=== PATIENT | female | born 1960 | race Caucasian/White ===

== ENCOUNTER 2017-05-04 08:03 | Observation (INO) | payer SELFPAY ==
[~2017-05-04] VITALS: Ht 162.6 cm; Wt 80.0 kg
[2017-05-04] VITALS (7 sets, daily range): BP systolic 108–166; BP diastolic 7–102; PULSE 79–98; RESP 18; TEMP 97.9–98.5; O2SAT 87–97
[~2017-05-04 08:03] MED LIST: ASPI325T PO; HYDR-3533 PO; PLAV75TA29 PO; ZOCO5TAB PO
[2017-05-04] MEDS ORDERED: MORPHINE SULFATE 4 MG/ML INJ IV PUSH ONE ×2 (08:15→09:30)
[2017-05-04] MEDS ORDERED: SODIUM CHLORIDE 0.9% FLUSH 10 ML FLUSH IVF PRN (08:15)
[2017-05-04 08:27] LABS: AUTOMATED NEUTROPHIL # 3.2 TH/MM3 (1.8-7.7); BASOPHIL # 0.1 TH/MM3 (0-0.2); BASOPHIL % 1.2 % (0.0-2.0); EOSINOPHIL # 0.1 TH/MM3 (0-0.4); EOSINOPHIL % 2.3 % (0.0-4.0); HEMATOCRIT 43.6 % (35.0-46.0); HEMO FLAGS DIFF FINAL; LYMPH % 13.1 % (9.0-44.0); LYMPHOCYTE # 0.6 TH/MM3 (1.0-4.8); MEAN CELL VOLUME 98.8 FL (80.0-100.0); MEAN CORPUSCULAR HEMOGLOBIN 33.6 PG (27.0-34.0); MONO % 16.7 % (0.0-8.0); NEUT % 66.7 % (16.0-70.0); PLATELET COUNT 203 TH/MM3 (150-450); RED BLOOD COUNT 4.41 MIL/MM3 (4.00-5.30); RED CELL DISTRIBUTION WIDTH 13.7 % (11.6-17.2); WHITE BLOOD COUNT 4.8 TH/MM3 (4.0-11.0)
[2017-05-04 08:35] LABS: APTT (PATIENT) 22.9 SEC (24.3-30.1); PROTHROMBIN TIME - PATIENT 10.7 SEC (9.8-11.6)
[2017-05-04 08:40] LABS: ANION GAP 7 MEQ/L (5-15); AST (GOT) 22 U/L (15-37); BICARBONATE 30.1 MEQ/L (21.0-32.0); BLOOD UREA NITROGEN 6 MG/DL (7-18); CHLORIDE 105 MEQ/L (98-107); GLOMERULAR FILTRATION RATE 78 ML/MIN (>89); MAGNESIUM 1.8 MG/DL (1.5-2.5); POTASSIUM 3.3 MEQ/L (3.5-5.1); SODIUM (NA) 142 MEQ/L (136-145)
[2017-05-04 08:44] LABS: ALKALINE PHOSPHATASE 85 U/L (45-117); ALT (GPT) 23 U/L (10-53); CREATINE KINASE 43 U/L (26-192); TOTAL BILIRUBIN ADULT 0.2 MG/DL (0.2-1.0)
--- NOTE | 2017-05-04 09:16 | RADRPT ---
EXAM DATE/TIME: 05/04/2017 08:29 [facility] COMPARISON: No previous studies available for comparison. INDICATIONS : Chest pain. MEDICAL HISTORY : None. SURGICAL HISTORY : None. ENCOUNTER: Initial ACUITY: 1 day PAIN SCORE: 10/10 LOCATION: Bilateral chest FINDINGS: Single AP view of the chest. The lungs are clear. Cardiomediastinal silhouette within normal limits. No evidence of pleural effusion or pneumothorax. CONCLUSION: No acute cardiopulmonary disease identified. Brien Santiago MD on May 04, 2017 at 9:13 Board Certified Radiologist. This report was verified electronically.
--- NOTE | 2017-05-04 09:21 | PD ---
HPI Chief Complaint: Chest Pain Time Seen by Provider: 08:09 Travel History International Travel<30 days: No Contact w/Intl Traveler<30days: No Traveled to known affect area: No History of Present Illness HPI Patient is a 57 year old female who comes in complaining of chest pains. She says she is getting severe pains in the middle of her chest which have been coming and going since yesterday. She says she has been working a lot outside and she believes she has been dehydrated. She reports vomiting yesterday. She denies SOB. She is a smoker and has history of PVD. PFSH Past Medical History Bipolar Disorder: Yes Anxiety: Yes Depression: Yes ?: Not : 3 Para: 1 Ectopic : Yes Past Surgical History Tonsillectomy: Yes Other Surgery: Yes (ESOPHAGEAL DILATION) Social History Alcohol Use: Yes (LIQUOR DAILY LAST DRINK 2 DAYS AGO ) Tobacco Use: Yes (1/2 PACK A DAY ) Substance Use: No Allergies-Medications (Allergen,Severity, Reaction): Coded Allergies: No Known Allergies (Unverified , 05/04/17) Reported Meds & Prescriptions Reported Meds & Active Scripts Active Aspirin 325 Mg Tab 325 Mg PO DAILY Review of Systems Except as stated in HPI: all other systems reviewed are Neg General / Constitutional: No: Fever, Chills HENT: No: Headaches, Lightheadedness Cardiovascular: Positive: Chest Pain or Discomfort Respiratory: No: Cough, Shortness of Breath Gastrointestinal: Positive: Nausea, Vomiting, No: Abdominal Pain Musculoskeletal: Positive: Pain, No: Edema Skin: No Rash, No Change in Pigmentation Neurologic: No: Weakness, Dizziness Physical Exam Narrative GENERAL: Awake and alert, in no acute distress. SKIN: Focused skin assessment warm/dry. HEAD: Atraumatic. Normocephalic. EYES: Pupils equal and round. No scleral icterus. ENT: Mucous membranes pink and moist. NECK: Trachea midline. No JVD. CARDIOVASCULAR: Regular rate and rhythm. No murmur appreciated. RESPIRATORY: No accessory muscle use. Clear to auscultation. Breath sounds equal bilaterally. GASTROINTESTINAL: Abdomen soft, non-tender, nondistended. MUSCULOSKELETAL: No obvious deformities. No clubbing. No cyanosis. No edema. NEUROLOGICAL: Awake and alert. No obvious cranial nerve deficits. Motor grossly within normal limits. Normal speech. PSYCHIATRIC: Appropriate mood and affect; insight and judgment normal. Data Data Last Documented VS Vital Signs Date Time Temp Pulse Resp B/P Pulse Ox O2 Delivery O2 Flow Rate FiO2 05/04/17 08:21 92 18 97 Room Air 05/04/17 08:15 132/102 130/82 05/04/17 08:08 98.5 Orders Electrocardiogram (05/04/17 ) Ckmb (Isoenzyme) Profile (05/04/17 08:09) Complete Blood Count With Diff (05/04/17 08:09) Comprehensive Metabolic Panel (05/04/17 08:09) Magnesium (Mg) (05/04/17 08:09) Prothrombin Time / Inr (Pt) (05/04/17 08:09) Act Partial Throm Time (Ptt) (05/04/17 08:09) Troponin I (05/04/17 08:09) Chest, Single Ap (05/04/17 08:09) Ecg Monitoring (05/04/17 08:09) Bilateral Bp Monitoring (05/04/17 08:09) Iv Access Insert/Monitor (05/04/17 08:09) Oximetry (05/04/17 08:09) Morphine Inj (Morphine Inj) (05/04/17 08:15) Sodium Chloride 0.9% Flush (Ns Flush) (05/04/17 08:15) Labs Laboratory Tests Test 05/04/17 08:18 White Blood Count 4.8 TH/MM3 Red Blood Count 4.41 MIL/MM3 Hemoglobin 14.8 GM/DL Hematocrit 43.6 % Mean Corpuscular Volume 98.8 FL Mean Corpuscular Hemoglobin 33.6 PG Mean Corpuscular Hemoglobin 34.0 % Concent Red Cell Distribution Width 13.7 % Platelet Count 203 TH/MM3 Mean Platelet Volume 7.2 FL Neutrophils (%) (Auto) 66.7 % Lymphocytes (%) (Auto) 13.1 % Monocytes (%) (Auto) 16.7 % Eosinophils (%) (Auto) 2.3 % Basophils (%) (Auto) 1.2 % Neutrophils # (Auto) 3.2 TH/MM3 Lymphocytes # (Auto) 0.6 TH/MM3 Monocytes # (Auto) 0.8 TH/MM3 Eosinophils # (Auto) 0.1 TH/MM3 Basophils # (Auto) 0.1 TH/MM3 CBC Comment DIFF FINAL Differential Comment Prothrombin Time 10.7 SEC Prothromb Time International 1.0 RATIO Ratio Activated Partial 22.9 SEC Thromboplast Time Sodium Level 142 MEQ/L Potassium Level 3.3 MEQ/L Chloride Level 105 MEQ/L Carbon Dioxide Level 30.1 MEQ/L Anion Gap 7 MEQ/L Blood Urea Nitrogen 6 MG/DL Creatinine 0.77 MG/DL Estimat Glomerular Filtration 78 ML/MIN Rate Random Glucose 95 MG/DL Calcium Level 8.3 MG/DL Magnesium Level 1.8 MG/DL Total Bilirubin 0.2 MG/DL Aspartate Amino Transf 22 U/L (AST/SGOT) Alanine Aminotransferase 23 U/L (ALT/SGPT) Alkaline Phosphatase 85 U/L Total Creatine Kinase 43 U/L Troponin I LESS THAN 0.02 NG/ML Total Protein 6.5 GM/DL Albumin 3.0 GM/DL [facility] Medical Decision Making Medical Screen Exam Complete: Yes Emergency Medical Condition: Yes Medical Record Reviewed: Yes Interpretation(s) ECG shows normal sinus rhythm at 91 T-wave inversions in 2, [address] elevation. Differential Diagnosis ACS versus NSTEMI versus STEMI versus pneumonia versus bronchitis Narrative Course Patient is a 57-year-old female who comes in complaining of chest pain. Exam shows no acute abnormalities. ECG shows no signs of STEMI. Chest x-ray shows no acute abnormalities. IV established, labs sent. Patient connected to cardiac rehab nurse. She took a full aspirin at home. Given morphine for pain. First troponin is negative. Patient will be placed in chest pain center for further management. Diagnosis Primary Impression: Chest pain Qualified Code: R07.9 - Chest pain, unspecified type Admitting Information Admitting Physician Requests: Observation Condition: Stable Melissa Palacio MD May 04, 2017 09:21
[2017-05-04] MEDS ORDERED: ACETAMINOPHEN 500 MG CPLT PO PRN (10:00)
[2017-05-04] MEDS ORDERED: ONDANSETRON HCL 4 MG/2 ML VIAL IV PRN (10:00)
[2017-05-04] MEDS ORDERED: NITROGLYCERIN 0.4 MG SL 25 TABS/BTL SL PRN (10:00)
--- NOTE | 2017-05-04 10:24 | HHI.HP ---
HPI Primary Care Physician No Primary Care Physician Chief Complaint Chest pain History of Present Illness 57-year-old female with known PVD and current smoker presents to the emergency room for further evaluation of substernal chest pain. Onset Saturday afternoon. Points to Location Substernal. Radiates under bilateral breasts. Discomfort described as pressure. Chest discomfort has been intermittent duration generally last no more than 10 seconds. No particular movements or positions make pain better or worse. No associated symptoms of shortness of breath, diaphoresis, or vomiting. Endorses she has been "belching a lot." Reports intermittent nausea 2 days. Endorses non-bloody emesis 1 and X1 episode nonbloody loose stool. Has tried [id number] Zantac without relief. No known precipitating or relieving factors. Denies similar pain in the past. She is tearful throughout interview, stating she is currently " highly anxious." Patient was seen and evaluated [facility] November 2016. At that time, she was diagnosed with peripheral vascular disease and told to follow-up with a vascular surgeon. She was prescribed aspirin 325, Plavix 75 mg, and simvastatin. Endorses she was compliant with medication until running out after 30 day prescription. States she was unable to follow-up with a PCP or vascular surgeon as she does not have insurance or the financial means to pay for appointments. Review of Systems General: No fatigue,weakness, fever, chills, or recent illness. Decreased appetite since Saturday. Has not been sleeping well since Saturday. HEENT: No WANG, no dysphasia CV: As stated above. Experienced chest pain episode during interview at which she clenched her fists over epigastric area, episode lasted approximately 15 seconds. Endorses intermittent leg pain only after walking and her being on her feet 56 hours. RESP: No SOB, cough, wheeze, or recent URI. GI: Intermittent nausea, currently denies nausea. Endorses 1 vomiting episode yesterday accompanied with one loose stool, both nonbloody. No constipation, pain, distention, or blood in the stool. Frequent belching since Saturday with a poor appetite. History of esophageal dilatation, denies dysphagia, ingestion, burning, or sour taste in mouth. : No dysuria, urgency, frequency EXT: No lower leg edema, no paraesthesias MS: No discomfort or change in ROM NEURO: No change in memory, dizziness, difficulty with balance, LOC, motor/ sensory deficits PSYCH: Endorses anxiety and depression, states she was seen at [facility] January 2016. Denies suicidal ideation. Reports situational stress regarding concern she may lose her job and she does not have a support system locally, family all lives in [place]. SKIN: No rashes, no concerning lesions Past Family Social History Allergies: Coded Allergies: No Known Allergies (Unverified , 05/04/17) Past Medical History PVD, anxiety, depression, bipolar Past Surgical History Tonsillectomy, esophageal dilatation Reported Medications Active Aspirin 325 Mg Tab 325 Mg PO DAILY Active Ordered Medications Current Medications Medications (Trade) Dose Ordered Sig/Kenna Route Start Time Stop Time Status Last Admin (NS Flush) 2 ml UNSCH PRN IVF 05/04/17 08:15 05/04/17 09:00 (NS Flush) 2 ml BID IV FLUSH 05/04/17 21:00 (Tylenol) 500 mg Q4H PRN PO 05/04/17 10:00 (Zofran Inj) 4 mg Q6H PRN IV 05/04/17 10:00 (Nitrostat Sl) 0.4 mg Q5M PRN SL 05/04/17 10:00 (Aspirin) 325 mg DAILY PO 05/05/17 09:00 Family History Positive for early onset cardiovascular disease father open heart surgery age 44. Social History No known hypertension, diabetes, or hyperlipidemia. Half pack daily smoker. Drinks 23 alcohol drinks daily. Denies any illegal drug use. 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 Past cardiac testing None Physical Exam Vital Signs Vital Signs Date Time Temp Pulse Resp B/P Pulse Ox O2 Delivery O2 Flow Rate FiO2 05/04/17 09:47 97 21 05/04/17 09:05 16 05/04/17 08:21 92 18 97 Room Air 05/04/17 08:15 92 132/102 130/82 05/04/17 08:15 18 97 Room Air 05/04/17 08:08 98.5 98 18 166/69 97 Physical Exam GENERAL: Alert WN, WD, NAD, tearful, anxious, female who appears older than stated age HEAD: NC, AT EYES: Sclera clear ENT: Mucous membranes pink and moist NECK: Supple, no masses, trachea midline CV: RRR, without murmur, rub, gallop, no JVD, S1-S2 no S3-S4. RESP: Diminished lung sounds throughout bilateral, no crackles, wheeze, rhonchi , symmetrical chest rise, nonlabored, able to speak in full sentences ABD: Soft, NT, ND, no masses, positive bowel tones BACK: No CVAT, no scoliosis EXT: Pulses +24, no dependent edema MS: Normal tone 4 extremities, nontender, no obvious deformities, full range of motion NEURO: CN II through CN XII grossly intact, motor strength 5/5, gait WNL PSYCH: A+O 3, pleasant affect, appropriate speech, appropriate mood and affect , insight and judgment SKIN: Normal turgor, normal texture, no lesions, no rashes Laboratory Laboratory Tests Test 05/04/17 08:18 White Blood Count 4.8 Red Blood Count 4.41 Hemoglobin 14.8 Hematocrit 43.6 Mean Corpuscular Volume 98.8 Mean Corpuscular Hemoglobin 33.6 Mean Corpuscular Hemoglobin 34.0 Concent Red Cell Distribution Width 13.7 Platelet Count 203 Mean Platelet Volume 7.2 Neutrophils (%) (Auto) 66.7 Lymphocytes (%) (Auto) 13.1 Monocytes (%) (Auto) 16.7 Eosinophils (%) (Auto) 2.3 Basophils (%) (Auto) 1.2 Neutrophils # (Auto) 3.2 Lymphocytes # (Auto) 0.6 Monocytes # (Auto) 0.8 Eosinophils # (Auto) 0.1 Basophils # (Auto) 0.1 CBC Comment DIFF FINAL Differential Comment Prothrombin Time 10.7 Prothromb Time International 1.0 Ratio Activated Partial 22.9 Thromboplast Time Sodium Level 142 Potassium Level 3.3 Chloride Level 105 Carbon Dioxide Level 30.1 Anion Gap 7 Blood Urea Nitrogen 6 Creatinine 0.77 Estimat Glomerular Filtration 78 Rate Random Glucose 95 Calcium Level 8.3 Magnesium Level 1.8 Total Bilirubin 0.2 Aspartate Amino Transf 22 (AST/SGOT) Alanine Aminotransferase 23 (ALT/SGPT) Alkaline Phosphatase 85 Total Creatine Kinase 43 Troponin I LESS THAN 0.02 Total Protein 6.5 Albumin 3.0 Result Diagram: 05/04/1718 05/04/1718 Imaging Last Impressions Chest X-Ray 05/04/17 0809 Signed Impressions: Service Date/Time: Thursday, May 04, 2017 08:29 - CONCLUSION: No acute cardiopulmonary disease identified. Brien Santiago MD Course EKG First EKG normal sinus rhythm, T-wave inversions inferiorly, no ST segment changes Assessment and Plan Assessment and Plan #1 Chest painadmitted to chest pain center. Serial EKG and cardiac enzymes. Seen and evaluated by Dr. Brandon Posada. Will order chemical stress test if second troponin and EKG unchanged. #2 AnxietyAtivan 0.5 mg by mouth 1 dose now. Encouraged patient to establish again with Jose Bartlett and restart her psychiatric medications. #3 PVDcontinue aspirin. Discussed importance compliance of medication, tobacco sensation, and keeping follow-up appointments. Spoke with case management to determine if she is a candidate for any medical assistance. Would prefer to restart her Plavix and simvastatin as previously ordered knowing she has follow-up with PCP. #4 Tobacco use-counseled on risk factors regarding tobacco use. Encouraged patient to quit smoking. #5 GERD-GI cocktail #6 Musculoskeletal pain-Toradol 30mg x1 IV Estefania Abbasi May 04, 2017 10:24
[2017-05-04] MEDS ORDERED: LIDOCAINE VISCOUS 2% SOLN 15 ML UDC SWISH-SWAL ONE (11:00)
[2017-05-04] MEDS ORDERED: ALUMINUM/MAGNESIUM/SIMETH 30 ML CUP PO ONE (11:00)
[2017-05-04] MEDS ORDERED: LORazepam 0.5 MG TAB PO ONE (11:00)
[2017-05-04 12:15] LABS: CREATINE KINASE 39 U/L (26-192)
[2017-05-04] MEDS ORDERED: KETOROLAC TROMETHAMINE 30 MG/ML (IVP) VIAL IV PUSH ONE (13:00)
--- NOTE | 2017-05-04 14:49 | EKG ---
Date Performed: 05/04/2017 Time Performed: 12:23:22 PTAGE: 57 years EKG: Sinus rhythm NONSPECIFIC ST & T-WAVE ABNORMALITY BORDERLINE ECG PREVIOUS TRACING : 05/04/2017 08.10 Since previous tracing, no significant change noted DOCTOR: Brandon Posada Interpretating Date/Time 05/04/2017 14:47:49
--- NOTE | 2017-05-04 14:51 | EKG ---
Date Performed: 05/04/2017 Time Performed: 08:10:20 PTAGE: 57 years EKG: Sinus rhythm NONSPECIFIC ST & T-WAVE ABNORMALITY BORDERLINE ECG NO PREVIOUS TRACING DOCTOR: Brandon Posada Interpretating Date/Time 05/04/2017 14:49:18
[2017-05-04] MEDS ORDERED: REGADENOSON INJ 0.4 MG/5 ML SYR ONE (15:14)
--- NOTE | 2017-05-04 17:29 | RADRPT ---
EXAM DATE/TIME: 05/04/2017 15:01 [facility] COMPARISON: No previous studies available for comparison. INDICATIONS : Mid chest pain with nausea for four days. Angina. DOSE: 26.7 mCi Tc99m Myoview at stress. 8.7 mCi Tc99m Myoview at rest. 0.4 mg Lexiscan STRESS SYMPTOMS: None. EJECTION FRACTION: 62% MEDICAL HISTORY : Peripheral vascular disease. SURGICAL HISTORY : Tonsillectomy. ENCOUNTER: Initial ACUITY: 4 - 6 days PAIN SCALE: 7/10 LOCATION: Midsternal chest TECHNIQUE: The patient underwent pharmacologic stress with infusion of prescribed dose. Continuous ECG tracing was monitored during stress. Gated SPECT imaging was performed after stress and conventional SPECT i maging was performed at rest. The examination was performed on a SPECT/CT scanner, both attenuation and non-corrected datasets were reviewed. FINDINGS: DISTRIBUTION: The maximum perfused segment at stress is in the anterior wall. PERFUSION STUDY: The pattern of perfusion at stress is within normal limits, with regional variations perfusion within 30%. The pattern of perfusion at stress and rest is unchanged. The diaphragmatic attenuation effec t lateral mid ventricular segments.. GATED STUDY: There is intact wall motion and thickening without hypokinetic or dyskinetic segments. CONCLUSION: 1. No evidence of stress-induced ischemia. 2. Normal wall motion with 62% ejection fraction. RISK CATEGORY: Low (<1% Annual Mortality Rate) Rashaad Grimm MD on May 04, 2017 at 17:25 Board Certified Radiologist. This report was verified electronically.
[2017-05-04] MEDS ORDERED: SIMV5TAB3 PO (17:32)
[2017-05-04] MEDS ORDERED: PLAV75TA29 PO (17:32)
--- NOTE | 2017-05-04 17:33 | HHI.DCPOC ---
Discharge Care Plan Diagnosis: (1) Chest wall pain (2) Situational stress (3) Anxiety (4) Peripheral arterial occlusive disease Goals to Promote Your Health * To prevent worsening of your condition and complications * To maintain your health at the optimal level Directions to Meet Your Goals Take your medications as prescribed Follow your dietary instruction Follow activity as directed Keep your appointments as scheduled Take your immunizations and boosters as scheduled If your symptoms worsen call your PCP, if no PCP go to Urgent Care Center or Emergency Room Smoking is Dangerous to Your Health. Avoid second hand smoke Call the 24-hour hour crisis hotline for domestic abuse at Estefania Abbasi May 04, 2017 17:32
[2017-05-04] MEDS ORDERED: LORazepam 0.5 MG TAB PO SCH (18:00)
[2017-05-04] MEDS ORDERED: SODIUM CHLORIDE 0.9% FLUSH 10 ML FLUSH IV FLUSH SCH (21:00)
[2017-05-05] MEDS ORDERED: ASPIRIN 325 MG TAB PO SCH (09:00)
--- NOTE | 2017-05-05 15:02 | TR ---
Date Performed: 05/04/2017 Time Performed: 15:40:57 DOCTOR: Brandon Posada DRUG LIST: CLINICAL HISTORY: ANGINA REASON FOR TEST: Angina REASON FOR ENDING: OBSERVATION: CONCLUSION: Lexiscan stress test was performed under standard four minute protocol. Radionuclid e was injected one minute prior to ending the test. No electrocardiographic abormalities were present to suggest ischemia. Nuclear imaging and interpretation are pending. COMMENTS:
[2017-05-16] MEDS ORDERED: [UNRECOGNIZED DRUG - CODE] PO (10:46)
[2017-05-16] MEDS ORDERED: IBUP200C PO (10:46)
[2017-05-16] MEDS ORDERED: PLAV75TA29 PO (11:12)
== END 2017-05-04 18:34 | disposition home or self-care (01) ==
LOC: NEPC 08:03 → NEDA 09:22 → NEPGCP 11:03
DX: R07.89 Other chest pain (principal); I20.9 Angina pectoris, unspecified; F41.9 Anxiety disorder, unspecified; I73.9 Peripheral vascular disease, unspecified; K21.9 Gastro-esophageal reflux disease without esophagitis; F17.210 Nicotine dependence, cigarettes, uncomplicated; M79.1 Myalgia; I77.9 Disorder of arteries and arterioles, unspecified
CPT/HCPCS: 71010; 78452; 80053; 82550; 83735; 84484; 85025; 85610; 85730; 93005; 93017; 96374; 96375; 99285; A9502; G0378; J1885; J2270; J2785

== ENCOUNTER 2017-06-03 08:24 | Emergency (ER) | payer SELFPAY ==
[~2017-06-03] VITALS: Ht 162.6 cm; Wt 84.0 kg
[~2017-06-03 08:24] MED LIST changes: -HYDR-3533 PO; +IBUP200C PO; +SIMV5TAB3 PO; -ZOCO5TAB PO; +[UNRECOGNIZED DRUG - CODE] PO
--- NOTE | 2017-06-03 08:29 | PD ---
HPI Chief Complaint: Yuan act Time Seen by Provider: 08:29 Travel History International Travel<30 days: No Contact w/Intl Traveler<30days: No Traveled to known affect area: No History of Present Illness HPI 57-year-old female came to the emergency room brought by EMS as a Yuan act. Patient says that she had been binge drinking and was having thoughts of killing herself. Here she has been very tearful and says that she just wants to because she cannot take her left leg pain anymore. Upon asking patient says she's been having this since last November. Every time she walks she is in excruciating pain. She was referred to a vascular surgeon that she has an appointment with on the 11 of this month. She was here for this leg pain when she had test done and was told that she needs to see vascular surgeon. She is a smoker and continues to smoke still. Currently she is not in any pain. Patient says she usually drinks 2 drinks every day except for the past couple days when she has been binge drinking. [facility] Past Medical History Narrative Medical List of her past medical, surgical, social and family history was reviewed from the nursing note. Bipolar Disorder: Yes Anxiety: Yes Depression: Yes Heart Rhythm Problems: No Cardiac Catheterization: No Cardiovascular Problems: No High Cholesterol: No Congestive Heart Failure: No Diabetes: No : 3 Para: 1 Ectopic : Yes Past Surgical History Coronary Artery Bypass Graft: No Tonsillectomy: Yes Other Surgery: Yes (ESOPHAGEAL DILATION) Social History Alcohol Use: Yes (LIQUOR DAILY LAST DRINK 2 DAYS AGO ) Tobacco Use: Yes (1/2 PACK A DAY ) Substance Use: No Allergies-Medications (Allergen,Severity, Reaction): Coded Allergies: No Known Allergies (Unverified , 06/03/17) Comments No known drug allergies. Reported Meds & Prescriptions Reported Meds & Active Scripts Active Simvastatin 5 Mg Tab 5 Mg PO DAILY Aspirin 325 Mg Tab 325 Mg PO DAILY Reported Lorazepam 1 Mg Tab 1 Mg PO DAILY PRN Lovastatin 10 Mg Tab 10 Mg PO DAILY [employer] (Ranitidine HCl) 75 Mg Tab 84 Mg PO DAILY Ibuprofen 200 Mg Cap 200 Mg PO Q4H PRN Narrative Medication List of her home medications reviewed from the nursing note. Review of Systems Except as stated in HPI: all other systems reviewed are Neg Physical Exam Narrative GENERAL: Awake, alert, tearful SKIN: Focused skin assessment warm/dry. Old bruises on her legs HEAD: Atraumatic. Normocephalic. EYES: Pupils equal and round. No scleral icterus. No injection or drainage. ENT: No nasal bleeding or discharge. Mucous membranes pink and moist. NECK: Trachea midline. No JVD. CARDIOVASCULAR: Regular rate and rhythm. No murmur appreciated. RESPIRATORY: No accessory muscle use. Clear to auscultation. Breath sounds equal bilaterally. GASTROINTESTINAL: Abdomen soft, non-tender, nondistended. Hepatic and splenic margins not palpable. MUSCULOSKELETAL: No obvious deformities. No clubbing. No cyanosis. No edema. Bilateral dopplerable DP is present NEUROLOGICAL: Awake and alert. No obvious cranial nerve deficits. Motor grossly within normal limits. Normal speech. PSYCHIATRIC: Appropriate mood and affect; insight and judgment normal. Data Data Last Documented VS Vital Signs Date Time Temp Pulse Resp B/P Pulse Ox O2 Delivery O2 Flow Rate FiO2 06/03/17 12:44 97.2 88 18 160/87 95 Room Air Orders Complete Blood Count With Diff (06/03/17 08:36) Comprehensive Metabolic Panel (06/03/17 08:36) Psych Screen (06/03/17 08:36) Drug Screen, Random Urine (06/03/17 08:36) Alcohol (Ethanol) (06/03/17 08:36) Electrocardiogram (06/03/17 ) Potassium Chloride Eff (K-Lyte Cl Eff) (06/03/17 09:45) Pantoprazole Inj (Protonix Inj) (06/03/17 10:00) Alprazolam (Xanax) (06/03/17 11:30) Labs Laboratory Tests Test 06/03/17 06/03/17 09:00 09:50 White Blood Count 13.0 TH/MM3 Red Blood Count 4.91 MIL/MM3 Hemoglobin 16.0 GM/DL Hematocrit 47.8 % Mean Corpuscular Volume 97.4 FL Mean Corpuscular Hemoglobin 32.5 PG Mean Corpuscular Hemoglobin 33.4 % Concent Red Cell Distribution Width 14.5 % Platelet Count 307 TH/MM3 Mean Platelet Volume 6.9 FL Neutrophils (%) (Auto) 87.4 % Lymphocytes (%) (Auto) 6.6 % Monocytes (%) (Auto) 5.2 % Eosinophils (%) (Auto) 0.2 % Basophils (%) (Auto) 0.6 % Neutrophils # (Auto) 11.3 TH/MM3 Lymphocytes # (Auto) 0.9 TH/MM3 Monocytes # (Auto) 0.7 TH/MM3 Eosinophils # (Auto) 0.0 TH/MM3 Basophils # (Auto) 0.1 TH/MM3 CBC Comment AUTO DIFF Differential Comment AUTO DIFF CONFIRMED Sodium Level 138 MEQ/L Potassium Level 3.2 MEQ/L Chloride Level 102 MEQ/L Carbon Dioxide Level 26.0 MEQ/L Anion Gap 10 MEQ/L Blood Urea Nitrogen 11 MG/DL Creatinine 0.80 MG/DL Estimat Glomerular Filtration 74 ML/MIN Rate Random Glucose 107 MG/DL Calcium Level 8.5 MG/DL Total Bilirubin 0.6 MG/DL Aspartate Amino Transf 41 U/L (AST/SGOT) Alanine Aminotransferase 24 U/L (ALT/SGPT) Alkaline Phosphatase 98 U/L Total Protein 7.2 GM/DL Albumin 3.4 GM/DL Ethyl Alcohol Level LESS THAN 3 MG/DL Urine Opiates Screen NEG Urine Barbiturates Screen NEG Urine Amphetamines Screen NEG Urine Benzodiazepines Screen NEG Urine Cocaine Screen NEG Urine Cannabinoids Screen NEG MDM Medical Decision Making Medical Screen Exam Complete: Yes Emergency Medical Condition: Yes Medical Record Reviewed: Yes Interpretation(s) Twelve-lead EKG was reviewed by me. Normal sinus rhythm, normal axis, nonspecific ST-T wave changes. Heart rate of 88 bpm. Differential Diagnosis Alcohol abuse, polysubstance abuse, major depression, suicidal ideation, leg claudication syndrome Narrative Course 9:53 AM blood test results of back and within acceptable limit except for her CBC which is elevated. Her alcohol level interestingly is almost 0. Awaiting for urine drug screen but I have medically cleared her. I looked at her CT area of the aorta with runoff which showed 60-80% stenosis of her left popliteal. However because she has dopplerable pulses and pain free currently and has an appointment with vascular surgeon on okay to not pursue that at this present time. She obviously does need to quit smoking as well. She will need a psych screen. Procedures EKG Prior to Arrival: No Diagnosis Primary Impression: Peripheral arterial occlusive disease Additional Impressions: Needs smoking cessation education Major depression Qualified Code: F33.1 - Moderate episode of recurrent major depressive disorder Suicidal thoughts Timothy Marin MD Jun 03, 2017 08:29
[2017-06-03 08:32] VITALS: BP 167/93; PULSE 108; RESP 19; TEMP 97.9; O2SAT 97
[2017-06-03 08:38] VITALS: BP 167/93; PULSE 105; RESP 18; TEMP 97.9; O2SAT 97
[2017-06-03] MEDS ORDERED: LORA1TAB12 PO (08:57)
[2017-06-03] MEDS ORDERED: LOVA10TA PO (08:57)
[2017-06-03 09:14] LABS: AUTOMATED NEUTROPHIL # 11.3 TH/MM3 (1.8-7.7); BASOPHIL # 0.1 TH/MM3 (0-0.2); BASOPHIL % 0.6 % (0.0-2.0); EOSINOPHIL % 0.2 % (0.0-4.0); HEMATOCRIT 47.8 % (35.0-46.0); LYMPH % 6.6 % (9.0-44.0); LYMPHOCYTE # 0.9 TH/MM3 (1.0-4.8); MEAN CELL VOLUME 97.4 FL (80.0-100.0); MEAN CORPUSCULAR HEMOGLOBIN 32.5 PG (27.0-34.0); MEAN CORPUSCULAR HGB CONC 33.4 % (32.0-36.0); MONO % 5.2 % (0.0-8.0); NEUT % 87.4 % (16.0-70.0); PLATELET COUNT 307 TH/MM3 (150-450); RED BLOOD COUNT 4.91 MIL/MM3 (4.00-5.30); RED CELL DISTRIBUTION WIDTH 14.5 % (11.6-17.2)
[2017-06-03 09:17] LABS: HEMO FLAGS AUTO DIFF
[2017-06-03 09:29] LABS: ALT (GPT) 24 U/L (10-53)
[2017-06-03 09:31] LABS: ALKALINE PHOSPHATASE 98 U/L (45-117); TOTAL BILIRUBIN ADULT 0.6 MG/DL (0.2-1.0)
[2017-06-03 09:35] LABS: ANION GAP 10 MEQ/L (5-15); AST (GOT) 41 U/L (15-37); BLOOD UREA NITROGEN 11 MG/DL (7-18); CHLORIDE 102 MEQ/L (98-107); GLOMERULAR FILTRATION RATE 74 ML/MIN (>89); POTASSIUM 3.2 MEQ/L (3.5-5.1); SODIUM (NA) 138 MEQ/L (136-145)
[2017-06-03 09:41] LABS: SCAN/DIFF AUTO DIFF CONFIRMED
[2017-06-03] MEDS ORDERED: POTASSIUM CHLORIDE 25 MEQ EFFERVESCENT TAB PO ONE (09:45)
[2017-06-03 09:55] VITALS: BP 150/84; PULSE 94; RESP 20; O2SAT 96
[2017-06-03] MEDS ORDERED: PANTOPRAZOLE SODIUM 40 MG VIAL IV PUSH ONE (10:00)
[2017-06-03 10:22] LABS: BARBITURATES, URINE NEG (NEG)
[2017-06-03 10:26] LABS: AMPHETAMINE, URINE NEG (NEG); COCAINE, URINE NEG (NEG)
[2017-06-03] MEDS ORDERED: ALPRAZolam 0.5 MG TAB PO ONE (11:30)
[2017-06-03 12:12] VITALS: BP 152/90
[2017-06-03 12:44] VITALS: BP 160/87; TEMP 97.2; O2SAT 95
--- NOTE | 2017-06-03 15:02 | EKG ---
Date Performed: 06/03/2017 Time Performed: 08:53:15 PTAGE: 57 years EKG: Sinus rhythm NONSPECIFIC ST & T-WAVE ABNORMALITY Since previous tracing, no significant change noted BORDERLINE E CG PREVIOUS TRACING : 06/03/2017 08.51 DOCTOR: Prieto Cuenca Interpretating Date/Time 06/03/2017 15:01:40
--- NOTE | 2017-06-05 12:31 | PD.PSY.CON ---
Provisional Diagnosis Admission Date [place] I. Alcohol induced mood disorder, alcohol use disorder, depression [place] II. Deferred [place] III. No significant medical history History of Present Illness Service Psychiatry Consult Requested By Primary Care Physician No Primary Care Physician HPI The patient is 57-year-old woman, domiciled, employed, with psychiatric history of depression, no psychiatric hospitalizations, no suicidal attempts, she is on Prozac and Ativan prescribed by PCP, alcohol use disorder, significant medical history who presented to the emergency room brought by EMS as a Yuan act. Patient says that she had been binge drinking and was having thoughts of killing herself. Here she has been very tearful and says that she just wants to because she cannot take her left leg pain anymore. Upon asking patient says she's been having this since last November. Every time she walks she is in excruciating pain. She was referred to a vascular surgeon that she has an appointment with on the of this month. She was here for this leg pain when she had test done and was told that she needs to see vascular surgeon. She is a smoker and continues to smoke still. Currently she is not in any pain. Patient says she usually drinks 2 drinks every day except for the past couple days when she has been binge drinking. On psychiatric evaluation today patient is clinically sober, calm, cooperative, in a good spirit, patient reports good mood, she denies depressive symptoms, she is future oriented, is states that yesterday was just drunk. She denies suicidal or homicidal ideation , she denies visual and auditory hallucinations, patient is oriented 3, no attention deficit. Patient reports 1 or 2 drinks per day, denies the use of illicit drugs. Review of Systems Constitutional: DENIES: Diaphoretic episodes, Fatigue, Fever, Weight gain, Weight loss, Chills, Dizziness, Change in appetite, Night Sweats Endocrine: DENIES: Abnorml menstrual pattern, Heat/cold intolerance, Polydipsia , Polyuria, Polyphagia Eyes: DENIES: Blurred vision, Diplopia, Eye inflammation, Eye pain, Vision loss , Photosensitivity, Double Vision Ears, nose, mouth, throat: DENIES: Tinnitus, Hearing loss, Vertigo, Nasal discharge, Oral lesions, Throat pain, Hoarseness, Ear Pain, Running Nose, Epistaxis, Sinus Pain, Toothache, Odynophagia Respiratory: DENIES: Apneas, Cough, Snoring, Wheezing, Hemoptysis, Sputum production, Shortness of breath Cardiovascular: DENIES: Chest pain, Palpitations, Syncope, Dyspnea on Exertion , PND, Lower Extremity Edema, Orthopnea, Claudication Gastrointestinal: DENIES: Abdominal pain, Black stools, Bloody stools, Constipation, Diarrhea, Nausea, Vomiting, Difficulty Swallowing, Anorexia Musculoskeletal: DENIES: Joint pain, Muscle aches, Stiffness, Joint Swelling, Back pain, Neck pain Integumentary: DENIES: Abnormal pigmentation, Pruritus, Rash, Nail changes, Breast masses, Breast skin changes, Nipple discharge Immunologic/allergic: DENIES: Eczema, Urticaria Neurologic: DENIES: Abnormal gait, Headache, Localized weakness, Paresthesias, Seizures, Speech Problems, Tremor, Poor Balance Psychiatric: DENIES: Anxiety, Confusion, Mood changes, Depression, Hallucinations, Agitation, Suicidal Ideation, Homicidal Ideation, Delusions Past Family Social History Coded Allergies: No Known Allergies (Unverified , 06/03/17) Active Scripts Clopidogrel (Plavix)75 Mg Tab75 Mg PO DAILY #30 TAB Ref 3 Prov:Melissa Adhikari WINDOW INSTALLER 05/16/17 Simvastatin 5 Mg Tab5 Mg PO DAILY #30 TAB Ref 0 Prov:Estefania Abbasi WINDOW INSTALLER 05/04/17 Aspirin 325 Mg [id number] Mg PO DAILY #30 TAB Ref 0 Prov:Torrey Alba MD 11/29/16 Reported Medications Lorazepam 1 Mg Tab1 Mg PO DAILY PRN (ANXIETY) Ref 0 06/03/17 Lovastatin 10 Mg Tab10 Mg PO DAILY #30 TAB Ref 0 06/03/17 Ranitidine HCl (Eql Acid Aix Architect)75 Mg Tab84 Mg PO DAILY 05/16/17 Ibuprofen 200 Mg [id number] Mg PO Q4H PRN (PAIN SCALE 4 TO 10) Ref 0 05/16/17 Family History She denies family psychiatric history Social History Patient was born and raised in [place], she lives in [place], 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 2) Verbal communication Physical Exam Vital Signs Vital Signs Date Time Temp Pulse Resp B/P Pulse Ox O2 Delivery O2 Flow Rate FiO2 06/03/17 12:44 97.2 88 18 160/87 95 Room Air Lab Results Labs Laboratory Tests Test 06/03/17 09:00 White Blood Count 13.0 TH/MM3 Red Blood Count 4.91 MIL/MM3 Hemoglobin 16.0 GM/DL Hematocrit 47.8 % Mean Corpuscular Volume 97.4 FL Mean Corpuscular Hemoglobin 32.5 PG Mean Corpuscular Hemoglobin 33.4 % Concent Red Cell Distribution Width 14.5 % Platelet Count 307 TH/MM3 Mean Platelet Volume 6.9 FL Neutrophils (%) (Auto) 87.4 % Lymphocytes (%) (Auto) 6.6 % Monocytes (%) (Auto) 5.2 % Eosinophils (%) (Auto) 0.2 % Basophils (%) (Auto) 0.6 % Neutrophils # (Auto) 11.3 TH/MM3 Lymphocytes # (Auto) 0.9 TH/MM3 Monocytes # (Auto) 0.7 TH/MM3 Eosinophils # (Auto) 0.0 TH/MM3 Basophils # (Auto) 0.1 TH/MM3 CBC Comment AUTO DIFF Differential Comment AUTO DIFF CONFIRMED Sodium Level 138 MEQ/L Potassium Level 3.2 MEQ/L Chloride Level 102 MEQ/L Carbon Dioxide Level 26.0 MEQ/L Anion Gap 10 MEQ/L Blood Urea Nitrogen 11 MG/DL Creatinine 0.80 MG/DL Estimat Glomerular Filtration 74 ML/MIN Rate Random Glucose 107 MG/DL Calcium Level 8.5 MG/DL Total Bilirubin 0.6 MG/DL Aspartate Amino Transf 41 U/L (AST/SGOT) Alanine Aminotransferase 24 U/L (ALT/SGPT) Alkaline Phosphatase 98 U/L Total Protein 7.2 GM/DL Albumin 3.4 GM/DL Ethyl Alcohol Level LESS THAN 3 MG/DL Mental Status Examination Appearance woman, age appearing, calm and cooperative Speech: Unremarkable Orientation: x3 Memory: Unremarkable Thought Process: Logical Thought Content: Unremarkable Hallucination Type: None Attention and Concentration: Good Suicidal Ideation: No Previous Suicide Attempts: No Homicidal Ideation: No Previous Homicide Attempts: No Judgment: WNL Affect: Good Mood: Euthymic Motor Activity: Normal gait Assessment & Plan Problem List: (1) Alcohol-induced mood disorder Assessment & Plan: On psychiatric evaluation today the patient does not present any objective or subjective symptomatology of depression, anxiety, jordan or psychosis. Patient denies suicidal or homicidal ideation, she denies visual and auditory hallucinations. Recent suicidal statement to law enforcement was the result of acute alcohol intoxication. Patient is medically sober. She does not meet criteria for psychiatric admission at this moment. Yuan act will be lifted.. ICD Code: F10.94 Assessment & Plan Estimated LOS: Lui Travis MD Jun 05, 2017 12:31
== END 2017-06-03 15:10 | disposition home or self-care (01) ==
LOC: NEPC 08:24 → NEPJ 15:10
DX: I73.9 Peripheral vascular disease, unspecified (principal); R45.851 Suicidal ideations; F33.1 Major depressive disorder, recurrent, moderate; F17.210 Nicotine dependence, cigarettes, uncomplicated; F10.10 Alcohol abuse, uncomplicated
CPT/HCPCS: 80053; 80307; 85025; 93005; 96374; 99284; C9113

== ENCOUNTER 2017-08-17 05:29 | Emergency (ER) | payer SELFPAY ==
[~2017-08-17] VITALS: Ht 162.6 cm; Wt 75.0 kg
[~2017-08-17 05:29] MED LIST changes: +LORA1TAB12 PO; +LOVA10TA PO
[2017-08-17 05:33] VITALS: BP 134/91; PULSE 120; RESP 22; TEMP 98.7; O2SAT 95
[2017-08-17] MEDS ORDERED: SODIUM CHLOR 0.9% 1000 ML INJ 1,000 ML IV SCH (05:46)
--- NOTE | 2017-08-17 05:49 | PD ---
HPI Chief Complaint: GI Complaint Time Seen by Provider: 05:34 Travel History International Travel<30 days: No Contact w/Intl Traveler<30days: No Traveled to known affect area: No History of Present Illness HPI Patient 57-year-old female presents emergency department for evaluation of nausea vomiting first clear but then having some blood streaked. Patient states that she has been an alcoholic in the past but quit recently had a relapse. She states she's been binging pretty hard over the past few days but quit 2 days ago. She states that she is unable tolerate by mouth and has not been taking any medications because of this. She is afraid that if she quits now that she might have a seizure. No fevers no diarrhea no constipation. The patient states she's also been not drinking enough nonalcoholic fluids. Symptoms are moderate, worsened with alcohol intake. Symptoms overall gradually worsening. PFSH Past Medical History Hx Anticoagulant Therapy: Yes (plavix, but states she does not take it anymore. It makes her sick ) Bipolar Disorder: Yes Anxiety: Yes Depression: Yes Heart Rhythm Problems: No Cardiac Catheterization: No Cardiovascular Problems: Yes High Cholesterol: Yes Congestive Heart Failure: No Diabetes: No Gastrointestinal Disorders: Yes GERD: Yes Medical other: Yes (blood clots removed 2 months ago left leg) Respiratory: No Influenza Vaccination: No ?: Not : 3 Para: 1 Ectopic : Yes Past Surgical History Coronary Artery Bypass Graft: No Tonsillectomy: Yes Other Surgery: Yes (ESOPHAGEAL DILATION) Social History Alcohol Use: Yes Tobacco Use: Yes (1/2 PACK A DAY ) Substance Use: Yes (1-2 drinks/day; last used yesterday) Allergies-Medications (Allergen,Severity, Reaction): Coded Allergies: No Known Allergies (Unverified , 08/18/17) Reported Meds & Prescriptions Reported Meds & Active Scripts Active No Active Prescriptions or Reported Medications Review of Systems Except as stated in HPI: all other systems reviewed are Neg Physical Exam Narrative GENERAL: Well-developed well-nourished appears fairly anxious. SKIN: Focused skin assessment warm/dry. HEAD: Atraumatic. Normocephalic. EYES: Pupils equal and round. No scleral icterus. No injection or drainage. ENT: No nasal bleeding or discharge. Mucous membranes pink and moist. NECK: Trachea midline. No JVD. CARDIOVASCULAR: Regular rate and rhythm. No murmur appreciated. RESPIRATORY: No accessory muscle use. Clear to auscultation. Breath sounds equal bilaterally. GASTROINTESTINAL: Abdomen soft, non-tender, nondistended. Hepatic and splenic margins not palpable. No rebound no percussive tenderness. MUSCULOSKELETAL: No obvious deformities. No clubbing. No cyanosis. No edema. NEUROLOGICAL: Awake and alert. No obvious cranial nerve deficits. Motor grossly within normal limits. Normal speech. No tremors. PSYCHIATRIC: Appropriate mood and affect; insight and judgment normal. Data Data Last Documented VS Vital Signs Date Time Temp Pulse Resp B/P (MAP) Pulse Ox O2 Delivery O2 Flow Rate FiO2 08/17/17 08:20 100 18 140/71 (94) 97 08/17/17 06:12 Room Air 08/17/17 05:33 98.7 Orders Orders Complete Blood Count With Diff (08/17/17 05:46) Comprehensive Metabolic Panel (08/17/17 05:46) Lipase (08/17/17 05:46) Iv Access Insert/Monitor (08/17/17 05:46) Ecg Monitoring (08/17/17 05:46) Oximetry (08/17/17 05:46) Ondansetron Inj (Zofran Inj) (08/17/17 06:00) Sodium Chlor 0.9% 1000 Ml Inj (Ns 1000 M (08/17/17 05:46) Sodium Chloride 0.9% Flush (Ns Flush) (08/17/17 06:00) Electrocardiogram (08/17/17 05:46) Lorazepam Inj (Ativan Inj) (08/17/17 06:15) Labs Laboratory Tests Test 08/17/17 05:50 White Blood Count 8.6 TH/MM3 Red Blood Count 4.65 MIL/MM3 Hemoglobin 16.6 GM/DL Hematocrit 48.8 % Mean Corpuscular Volume 104.9 FL Mean Corpuscular Hemoglobin 35.7 PG Mean Corpuscular Hemoglobin Concent 34.0 % Red Cell Distribution Width 17.8 % Platelet Count 234 TH/MM3 Mean Platelet Volume 7.6 FL Neutrophils (%) (Auto) 73.2 % Lymphocytes (%) (Auto) 13.7 % Monocytes (%) (Auto) 11.0 % Eosinophils (%) (Auto) 1.1 % Basophils (%) (Auto) 1.0 % Neutrophils # (Auto) 6.3 TH/MM3 Lymphocytes # (Auto) 1.2 TH/MM3 Monocytes # (Auto) 0.9 TH/MM3 Eosinophils # (Auto) 0.1 TH/MM3 Basophils # (Auto) 0.1 TH/MM3 CBC Comment AUTO DIFF Differential Total Cells Counted 100 Neutrophils % (Manual) 77 % Band Neutrophils % 1 % Lymphocytes % 10 % Monocytes % 8 % Basophils % 1 % Neutrophils # (Manual) 7.0 TH/MM3 Metamyelocytes 1 % Myelocytes 2 % Differential Comment FINAL DIFF MANUAL Platelet Estimate NORMAL Platelet Morphology Comment NORMAL Blood Urea Nitrogen 14 MG/DL Creatinine 0.89 MG/DL Random Glucose 81 MG/DL Total Protein 8.1 GM/DL Albumin 3.9 GM/DL Calcium Level 9.5 MG/DL Alkaline Phosphatase 85 U/L Aspartate Amino Transf (AST/SGOT) 142 U/L Alanine Aminotransferase (ALT/SGPT) 121 U/L Total Bilirubin 1.3 MG/DL Sodium Level 136 MEQ/L Potassium Level 3.9 MEQ/L Chloride Level 100 MEQ/L Carbon Dioxide Level 22.5 MEQ/L Anion Gap 14 MEQ/L Estimat Glomerular Filtration Rate 66 ML/MIN Lipase 423 U/L MDM Medical Decision Making Medical Screen Exam Complete: Yes Emergency Medical Condition: Yes Differential Diagnosis Dehydration, mild alcohol withdrawal, acute abdomen unlikely. Narrative Course Patient roomed emergency department, given Ativan and fluids. She is feeling much better. Still clinically sober she is requesting discharge. At this time I do not believe there is any indication further workup. Discussed alcohol and need to cease drinking at this time. Discussed return to ED criteria. Labs do indication some mild dehydration with hemoglobin of 16. Blood streaking in her emesis could represent a Jerilyn-Elliott tear. Either way she has not had any bleeding while in the emergency department. Diagnosis Primary Impression: Dehydration Referrals: [facility] No Active Prescriptions or Reported Meds Disposition: DISCHARGE HOME Condition: Stable Luis Eason MD Aug 17, 2017 05:49
[2017-08-17] MEDS ORDERED: SODIUM CHLORIDE 0.9% FLUSH 10 ML FLUSH IV FLUSH PRN (06:00)
[2017-08-17] MEDS ORDERED: ONDANSETRON HCL 4 MG/2 ML VIAL IVP ONE (06:00)
[2017-08-17 06:04] VITALS: O2SAT 96
[2017-08-17 06:12] VITALS: BP 137/67; PULSE 84; RESP 18; O2SAT 97
[2017-08-17 06:12] LABS: AUTOMATED NEUTROPHIL # 6.3 TH/MM3 (1.8-7.7); BASOPHIL # 0.1 TH/MM3 (0-0.2); EOSINOPHIL # 0.1 TH/MM3 (0-0.4); EOSINOPHIL % 1.1 % (0.0-4.0); HEMATOCRIT 48.8 % (35.0-46.0); LYMPH % 13.7 % (9.0-44.0); LYMPHOCYTE # 1.2 TH/MM3 (1.0-4.8); MEAN CELL VOLUME 104.9 FL (80.0-100.0); MEAN CORPUSCULAR HEMOGLOBIN 35.7 PG (27.0-34.0); NEUT % 73.2 % (16.0-70.0); PLATELET COUNT 234 TH/MM3 (150-450); RED BLOOD COUNT 4.65 MIL/MM3 (4.00-5.30); RED CELL DISTRIBUTION WIDTH 17.8 % (11.6-17.2); WHITE BLOOD COUNT 8.6 TH/MM3 (4.0-11.0)
[2017-08-17 06:13] LABS: HEMO FLAGS AUTO DIFF
[2017-08-17] MEDS ORDERED: LORazepam 2 MG/ML VIAL IV PUSH ONE (06:15)
[2017-08-17 06:34] LABS: ALKALINE PHOSPHATASE 85 U/L (45-117); TOTAL BILIRUBIN ADULT 1.3 MG/DL (0.2-1.0)
[2017-08-17 06:35] LABS: ALT (GPT) 121 U/L (10-53); ANION GAP 14 MEQ/L (5-15); AST (GOT) 142 U/L (15-37); BICARBONATE 22.5 MEQ/L (21.0-32.0); BLOOD UREA NITROGEN 14 MG/DL (7-18); CHLORIDE 100 MEQ/L (98-107); GLOMERULAR FILTRATION RATE 66 ML/MIN (>89); POTASSIUM 3.9 MEQ/L (3.5-5.1); SODIUM (NA) 136 MEQ/L (136-145)
[2017-08-17 07:19] LABS: BANDS 1 % (0-6); BASOPHILS 1 % (0-2); METAMYELOCYTES 1 % (0-1); MYELOCYTES 2 % (0-0); PLATELET ESTIMATE SMEAR NORMAL (NORMAL); PLATELET MORPHOLOGY NORMAL (NORMAL); POLYS (SEG NEUTROPHILS) 77 % (16-70); SCAN/DIFF FINAL DIFF MANUAL; WBC DIFF SAMPLE 100
[2017-08-17 08:20] VITALS: BP 140/71
--- NOTE | 2017-08-17 09:05 | EKG ---
Date Performed: 08/17/2017 Time Performed: 06:00:33 PTAGE: 57 years EKG: Sinus rhythm NONSPECIFIC ST & T-WAVE ABNORMALITY ABNORMAL ECG No significant change from prior electrocardiogram. PREVIOUS TRACING : 06/03/2017 08.53 DOCTOR: Kingston Acuna Interpretating Date/Time 08/17/2017 09:04:28
== END 2017-08-17 08:35 | disposition home or self-care (01) ==
LOC: NEPE 05:29
DX: E86.0 Dehydration (principal); R11.2 Nausea with vomiting, unspecified; R94.31 Abnormal electrocardiogram [ECG] [EKG]; F31.9 Bipolar disorder, unspecified; F41.9 Anxiety disorder, unspecified; E78.00 Pure hypercholesterolemia, unspecified; K21.9 Gastro-esophageal reflux disease without esophagitis; F17.200 Nicotine dependence, unspecified, uncomplicated
CPT/HCPCS: 80053; 83690; 85007; 85027; 93005; 96361; 96374; 96375; 99284; J2060; J2405; J7030

== ENCOUNTER 2017-08-18 20:05 | Emergency (ER) | payer OTHER ==
[~2017-08-18] VITALS: Ht 162.6 cm; Wt 80.0 kg
--- NOTE | 2017-08-18 21:27 | PD ---
HPI Chief Complaint: Psychiatric Symptoms Time Seen by Provider: 21:25 Travel History International Travel<30 days: No Contact w/Intl Traveler<30days: No History of Present Illness HPI 57-year-old female presents to the ED under Yuan act for evaluation of suicidal ideation. According to the Yuan act paper work the patient text a friend that she was depressed and wanted to end her life. On presentation the patient denies suicidal ideation. She states that she has a chronic alcoholic who has relapsed and wants to get into a detox program. She endorses drinking "2 drinks" today. She denies somatic complaints. He denies illicit drug use. She is a current smoker. PFSH Past Medical History Hx Anticoagulant Therapy: Yes (plavix, but states she does not take it anymore. It makes her sick ) Bipolar Disorder: Yes Anxiety: Yes Depression: Yes Heart Rhythm Problems: No Cardiac Catheterization: No Cardiovascular Problems: Yes High Cholesterol: Yes Congestive Heart Failure: No Diabetes: No Gastrointestinal Disorders: Yes GERD: Yes Respiratory: No : 3 Para: 1 Ectopic : Yes Past Surgical History Coronary Artery Bypass Graft: No Tonsillectomy: Yes Other Surgery: Yes (ESOPHAGEAL DILATION) Social History Alcohol Use: Yes Tobacco Use: Yes (1/2 PACK A DAY ) Substance Use: Yes (1-2 drinks/day; last used yesterday) Allergies-Medications (Allergen,Severity, Reaction): Coded Allergies: No Known Allergies (Unverified , 08/17/17) Reported Meds & Prescriptions Reported Meds & Active Scripts Active Plavix (Clopidogrel Bisulfate) 75 Mg Tab 75 Mg PO DAILY Simvastatin 5 Mg Tab 5 Mg PO DAILY Aspirin 325 Mg Tab 325 Mg PO DAILY Reported Lorazepam 1 Mg Tab 1 Mg PO DAILY PRN Lovastatin 10 Mg Tab 10 Mg PO DAILY Eql Acid Cardiac/Vascular Sonographer (Ranitidine HCl) 75 Mg Tab 84 Mg PO DAILY Ibuprofen 200 Mg Cap 200 Mg PO Q4H PRN Review of Systems Except as stated in HPI: all other systems reviewed are Neg Physical Exam Narrative GENERAL: Well-nourished, well-developed, dry appearing, intoxicated white female in no acute distress. PSYCHIATRIC: No delusional thought processes. No hallucinations. Intermittently tearful during the interview. SKIN: Focused skin assessment warm/dry. Multiple tattoos. HEAD: Normocephalic. EYES: No scleral icterus. No injection or drainage. NECK: Supple, trachea midline. No JVD or lymphadenopathy. CARDIOVASCULAR: Regular rate and rhythm without murmurs, gallops, or rubs. RESPIRATORY: Breath sounds clear and equal bilaterally. No accessory muscle use. GASTROINTESTINAL: Abdomen soft, non-tender, nondistended. Active bowel sounds. MUSCULOSKELETAL: No cyanosis, or edema. Moves the extremities spontaneously. BACK: Nontender without obvious deformity. No CVA tenderness. Data Data Last Documented VS Vital Signs Date Time Temp Pulse Resp B/P (MAP) Pulse Ox O2 Delivery O2 Flow Rate FiO2 08/18/17 21:35 97.3 104 20 129/69 (89) 94 Orders Orders Psych Screen (08/18/17 21:20) Alcohol (Ethanol) (08/18/17 21:35) MDM Medical Decision Making Medical Screen Exam Complete: Yes Emergency Medical Condition: Yes Differential Diagnosis Adjustment disorder versus anxiety versus bipolar versus depression versus dementia versus electrolyte disorder versus malingering versus mood disorder versus ODD versus psychosis versus PTSD versus schizophrenia versus schizoaffective disorder versus substance-induced mood disorder versus other Narrative Course 57-year-old female presents to the ED under Yuan act for evaluation of suicidal ideation. According to the Yuan act paper work the patient text a friend that she was depressed and wanted to end her life. On presentation the patient denies suicidal ideation. She states that she has a chronic alcoholic who has relapsed and wants to get into a detox program. She endorses drinking "2 drinks" today. She denies somatic complaints. He denies illicit drug use. She is a current smoker. Vitals reviewed. Physical exam reveals a dry appearing white female in no acute distress. Labs were drawn on 08/17/17. They revealed some elevation of the LFTs and lipase which are likely related to the patient's chronic alcoholism and dehydration. We'll check an alcohol level and allow the patient to orally rehydrate. She is medically cleared. Awaiting psychiatric recommendations. Lyssa Gaspar Aug 18, 2017 21:27
[2017-08-18 21:35] VITALS: BP 129/69; PULSE 104; RESP 20; TEMP 97.3; O2SAT 94
--- NOTE | 2017-08-18 23:10 | PD ---
Physical Exam Time Seen by Provider: 23:09 Narrative Please refer to previous providers documentation for details surrounding the patient's current visit. Data Data Last Documented VS Vital Signs Date Time Temp Pulse Resp B/P (MAP) Pulse Ox O2 Delivery O2 Flow Rate FiO2 08/18/17 21:35 97.3 104 20 129/69 (89) 94 Orders Orders Psych Screen (08/18/17 21:20) Alcohol (Ethanol) (08/18/17 21:35) Labs Laboratory Tests Test 08/18/17 21:30 Ethyl Alcohol Level 223 MG/DL [facility] Medical Record Reviewed: Yes Supervised Visit with JUAN MIGUEL: No Narrative Course Patient has been medically cleared by previous provider and psych screen completed. Patient will be transferred to act. She remains medically cleared for this. Diagnosis Primary Impression: Alcohol-induced mood disorder Scripts No Active Prescriptions or Reported Meds Disposition: 70 TRANSFER TO OTHER FACILITY Condition: Stable Karrie Leger Aug 18, 2017 23:10
== END 2017-08-18 23:10 ==
LOC: NEPJ 20:05
DX: F10.94 Alcohol use, unspecified with alcohol-induced mood disorder (principal); F17.210 Nicotine dependence, cigarettes, uncomplicated; Z79.899 Other long term (current) drug therapy
CPT/HCPCS: 80307; 99285

== ENCOUNTER 2017-08-28 10:52 | Emergency (ER) | payer OTHER ==
[~2017-08-28] VITALS: Ht 167.6 cm; Wt 75.0 kg
[2017-08-28 11:10] VITALS: BP 129/79; PULSE 97; RESP 16; TEMP 98; O2SAT 99
--- NOTE | 2017-08-28 11:19 | PD ---
HPI Chief Complaint: Psychiatric Symptoms Time Seen by Provider: 10:56 Travel History International Travel<30 days: No Contact w/Intl Traveler<30days: No Traveled to known affect area: No History of Present Illness HPI The patient is a 57-year-old female who presents emergency department via police as a Yuan act. According to the police affidavit the patient has a drinking problem 1 wanted to . She advised the police commanding officer that she has not ate or drank anything other than alcohol for days and cannot stay asleep. She'll try to drink until she passed out but woke up today. Patient does have a history of depression, however, currently does not take medications. She does note suicidal ideation secondary to her drinking problem, however, does not have a plan for suicide. She is requesting treatment for her drinking. She denies any illicit drug use. She denies any hallucinations or delusions. Symptoms are moderate, exacerbated by history of alcohol abuse, and there are no current alleviating factors. PFSH Past Medical History Hx Anticoagulant Therapy: Yes (plavix, but states she does not take it anymore. It makes her sick ) Bipolar Disorder: Yes Anxiety: Yes Depression: Yes Heart Rhythm Problems: No Cardiac Catheterization: No Cardiovascular Problems: Yes High Cholesterol: Yes Congestive Heart Failure: No Diabetes: No Diminished Hearing: No Gastrointestinal Disorders: Yes GERD: Yes Respiratory: No Tetanus Vaccination: < 5 Years ?: Not : 3 Para: 1 Ectopic : Yes Past Surgical History Coronary Artery Bypass Graft: No Tonsillectomy: Yes Other Surgery: Yes (ESOPHAGEAL DILATION) Social History Alcohol Use: Yes (DAILY) Tobacco Use: Yes (1/2 PACK A DAY ) Substance Use: Yes (1-2 drinks/day; last used yesterday) Allergies-Medications (Allergen,Severity, Reaction): Coded Allergies: No Known Allergies (Unverified , 08/18/17) Reported Meds & Prescriptions Reported Meds & Active Scripts Active No Active Prescriptions or Reported Medications Review of Systems Except as stated in HPI: all other systems reviewed are Neg General / Constitutional: No: Fever Cardiovascular: No: Chest Pain or Discomfort Respiratory: No: Shortness of Breath Gastrointestinal: No: Nausea, Vomiting, Abdominal Pain Psychiatric: Positive: Depression, Suicidal Ideations, Substance Abuse ( alcohol abuse), No: Disorder of Thought, Homicidal Ideation Physical Exam Narrative GENERAL: Awake, alert, nontoxic-appearing 57 year-old female who appears her stated age and is in no acute respiratory distress. SKIN: Focused skin assessment warm/dry. HEAD: Atraumatic. Normocephalic. EYES: Pupils equal and round. No scleral icterus. No injection or drainage. ENT: No nasal bleeding or discharge. Upper dentures in place. NECK: Trachea midline. No JVD. CARDIOVASCULAR: Regular rate and rhythm. No murmur appreciated. RESPIRATORY: No accessory muscle use. Clear to auscultation. Breath sounds equal bilaterally. GASTROINTESTINAL: Abdomen soft, non-tender, nondistended. Hepatic and splenic margins not palpable. MUSCULOSKELETAL: No obvious deformities. No clubbing. No cyanosis. No edema. Ecchymosis noted on the right forearm. NEUROLOGICAL: Awake and alert. No obvious cranial nerve deficits. Motor grossly within normal limits. Normal speech. Nonfocal. Oriented 4. Follows commands without difficulty. PSYCHIATRIC: Tearful, insight and judgment appear normal. Data Data Last Documented VS Vital Signs Date Time Temp Pulse Resp B/P (MAP) Pulse Ox O2 Delivery O2 Flow Rate FiO2 08/28/17 11:10 98.0 97 16 129/79 (96) 99 Orders Orders Complete Blood Count With Diff (08/28/17 11:14) Comprehensive Metabolic Panel (08/28/17 11:14) Psych Screen (08/28/17 11:14) Drug Screen, Random Urine (08/28/17 11:14) Alcohol (Ethanol) (08/28/17 11:14) Labs Laboratory Tests Test 08/28/17 11:15 White Blood Count 5.9 TH/MM3 Red Blood Count 4.29 MIL/MM3 Hemoglobin 15.1 GM/DL Hematocrit 45.0 % Mean Corpuscular Volume 104.8 FL Mean Corpuscular Hemoglobin 35.2 PG Mean Corpuscular Hemoglobin Concent 33.6 % Red Cell Distribution Width 16.9 % Platelet Count 344 TH/MM3 Mean Platelet Volume 7.1 FL Neutrophils (%) (Auto) 69.2 % Lymphocytes (%) (Auto) 17.1 % Monocytes (%) (Auto) 12.3 % Eosinophils (%) (Auto) 1.3 % Basophils (%) (Auto) 0.1 % Neutrophils # (Auto) 4.1 TH/MM3 Lymphocytes # (Auto) 1.0 TH/MM3 Monocytes # (Auto) 0.7 TH/MM3 Eosinophils # (Auto) 0.1 TH/MM3 Basophils # (Auto) 0.0 TH/MM3 CBC Comment DIFF FINAL Differential Comment Blood Urea Nitrogen 6 MG/DL Creatinine 0.66 MG/DL Random Glucose 74 MG/DL Total Protein 7.2 GM/DL Albumin 3.5 GM/DL Calcium Level 8.6 MG/DL Alkaline Phosphatase 83 U/L Aspartate Amino Transf (AST/SGOT) 150 U/L Alanine Aminotransferase (ALT/SGPT) 132 U/L Total Bilirubin 0.7 MG/DL Sodium Level 141 MEQ/L Potassium Level 3.7 MEQ/L Chloride Level 106 MEQ/L Carbon Dioxide Level 22.1 MEQ/L Anion Gap 13 MEQ/L Estimat Glomerular Filtration Rate 93 ML/MIN Urine Opiates Screen NEG Urine Barbiturates Screen NEG Urine Amphetamines Screen NEG Urine Benzodiazepines Screen NEG Urine Cocaine Screen NEG Urine Cannabinoids Screen NEG Ethyl Alcohol Level 201 MG/DL MDM Medical Decision Making Medical Screen Exam Complete: Yes Emergency Medical Condition: Yes Medical Record Reviewed: Yes Interpretation(s) Laboratory Tests Test 08/28/17 11:15 White Blood Count 5.9 TH/MM3 Red Blood Count 4.29 MIL/MM3 Hemoglobin 15.1 GM/DL Hematocrit 45.0 % Mean Corpuscular Volume 104.8 FL Mean Corpuscular Hemoglobin 35.2 PG Mean Corpuscular Hemoglobin Concent 33.6 % Red Cell Distribution Width 16.9 % Platelet Count 344 TH/MM3 Mean Platelet Volume 7.1 FL Neutrophils (%) (Auto) 69.2 % Lymphocytes (%) (Auto) 17.1 % Monocytes (%) (Auto) 12.3 % Eosinophils (%) (Auto) 1.3 % Basophils (%) (Auto) 0.1 % Neutrophils # (Auto) 4.1 TH/MM3 Lymphocytes # (Auto) 1.0 TH/MM3 Monocytes # (Auto) 0.7 TH/MM3 Eosinophils # (Auto) 0.1 TH/MM3 Basophils # (Auto) 0.0 TH/MM3 CBC Comment DIFF FINAL Differential Comment Blood Urea Nitrogen 6 MG/DL Creatinine 0.66 MG/DL Random Glucose 74 MG/DL Total Protein 7.2 GM/DL Albumin 3.5 GM/DL Calcium Level 8.6 MG/DL Alkaline Phosphatase 83 U/L Aspartate Amino Transf (AST/SGOT) 150 U/L Alanine Aminotransferase (ALT/SGPT) 132 U/L Total Bilirubin 0.7 MG/DL Sodium Level 141 MEQ/L Potassium Level 3.7 MEQ/L Chloride Level 106 MEQ/L Carbon Dioxide Level 22.1 MEQ/L Anion Gap 13 MEQ/L Estimat Glomerular Filtration Rate 93 ML/MIN Urine Opiates Screen NEG Urine Barbiturates Screen NEG Urine Amphetamines Screen NEG Urine Benzodiazepines Screen NEG Urine Cocaine Screen NEG Urine Cannabinoids Screen NEG Ethyl Alcohol Level 201 MG/DL Differential Diagnosis Differential diagnosis includes alcohol abuse, substance induced mood disorder, suicidal ideation, depressive disorder NOS, bipolar affective disorder. Narrative Course Labs were drawn and sent. Psychiatric evaluation was ordered. 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 Alcohol level is elevated at 201. Tox screen is negative. The patient is medically cleared to be evaluated by psychiatry. Disposition as per psych. Diagnosis Primary Impression: Alcohol-induced mood disorder Additional Impressions: Alcohol intoxication Qualified Codes: F10.920 - Alcohol use, unspecified with intoxication, uncomplicated Elevated transaminase level Scripts No Active Prescriptions or Reported Meds Condition: Stable Horacio Mackenzie MD Aug 28, 2017 11:18
[2017-08-28 11:39] LABS: AUTOMATED NEUTROPHIL # 4.1 TH/MM3 (1.8-7.7); BASOPHIL % 0.1 % (0.0-2.0); EOSINOPHIL # 0.1 TH/MM3 (0-0.4); EOSINOPHIL % 1.3 % (0.0-4.0); HEMO FLAGS DIFF FINAL; LYMPH % 17.1 % (9.0-44.0); MEAN CELL VOLUME 104.8 FL (80.0-100.0); MEAN CORPUSCULAR HEMOGLOBIN 35.2 PG (27.0-34.0); MEAN CORPUSCULAR HGB CONC 33.6 % (32.0-36.0); MONO % 12.3 % (0.0-8.0); NEUT % 69.2 % (16.0-70.0); PLATELET COUNT 344 TH/MM3 (150-450); RED BLOOD COUNT 4.29 MIL/MM3 (4.00-5.30); RED CELL DISTRIBUTION WIDTH 16.9 % (11.6-17.2); WHITE BLOOD COUNT 5.9 TH/MM3 (4.0-11.0)
[2017-08-28 12:00] LABS: ALT (GPT) 132 U/L (10-53); ANION GAP 13 MEQ/L (5-15); AST (GOT) 150 U/L (15-37); BICARBONATE 22.1 MEQ/L (21.0-32.0); BLOOD UREA NITROGEN 6 MG/DL (7-18); CHLORIDE 106 MEQ/L (98-107); GLOMERULAR FILTRATION RATE 93 ML/MIN (>89); POTASSIUM 3.7 MEQ/L (3.5-5.1); SODIUM (NA) 141 MEQ/L (136-145)
[2017-08-28 12:02] LABS: ALKALINE PHOSPHATASE 83 U/L (45-117); TOTAL BILIRUBIN ADULT 0.7 MG/DL (0.2-1.0)
[2017-08-28 12:05] LABS: ALCOHOL 201 MG/DL (0-5)
[2017-08-28 14:34] VITALS: BP 140/71; PULSE 90; RESP 18; O2SAT 95
[2017-08-28 16:13] VITALS: BP 132/78; PULSE 80
[2017-08-28] MEDS ORDERED: FLUMAZENIL 0.5 MG/5 ML VIAL IV PUSH PRN (17:15)
[2017-08-28] MEDS ORDERED: ONDANSETRON ODT 4 MG TAB PO PRN (17:15)
[2017-08-28] MEDS ORDERED: LORazepam 2 MG TAB PO PRN (17:15)
[2017-08-28] MEDS ORDERED: LORazepam 2 MG/ML VIAL IV PUSH PRN ×4 (17:15)
[2017-08-28] MEDS ORDERED: LORazepam 1 MG TAB PO PRN (17:15)
[2017-08-28] MEDS ORDERED: LORazepam 2 MG/ML VIAL IM PRN (17:45)
[2017-08-28 18:24] VITALS: BP 140/86; PULSE 83; RESP 18; O2SAT 100
[2017-08-28 22:00] VITALS: BP_SYST 136; BP_SYST 165; BP_DIAS 68; BP_DIAS 77; PULSE 80; RESP 18; RESP 19; TEMP 96.9; TEMP 97.3; O2SAT 96; O2SAT 99
[2017-08-29 02:19] VITALS: BP 128/73; PULSE 89; RESP 18; TEMP 97.9; O2SAT 95
[2017-08-29 05:48] VITALS: BP 136/73; PULSE 93; RESP 18; TEMP 96.9; O2SAT 96
--- NOTE | 2017-08-29 09:45 | PD ---
History of Present Illness Chief Complaint: Psychiatric Symptoms Time Seen by Provider: 09:00 Travel History International Travel<30 Days: No Contact w/Intl Traveler<30days: No Known affected area: No Legal Status Legal Status: Yuan Act Yuan Act Signed By: Criselda Sotomayor Yuan Act Comment: CAMPOS Parmjit Barnes#[id number], Case#[id number] History of Present Illness: History of Present Illness The patient is a 57-year-old female with history of alcohol dependence who presents to emergency department via police under a Yuan act. According to the police affidavit the patient verbalized her desire to and that she was drinking excessively in order to . Upon her arrival her BAL was 201. She tells me that she called the cafeteria manager at the sober living house she was at previously and that she called for help. It was Chandrika who called the police. The patient was monitored in secure environment until she was clinically sober. She did not present any suicidality and no behavioral concerns. Patient [place] [facility] [place] times this past year and has been sent to [facility] for alcohol detox. She was at [facility] least week but left AMA. The patient is alert, oriented, calm. Slight tremor noted. Speech is clear, logical. No psychosis, no jordan. She denies suicidal ideation and states " I said the wrong thing to the wrong person. I have a son and a grandson that I am trying to reconnect with them. Also on Sep 03 I will be trying to go back home to [place] since i will be able to get travelers assistance. She was asked to complete a list of positive coping skills to utilize when she has the urge to drink and she was able to complete list. This included calling her sponsor, going to a meeting, reading. [facility] Past Medical History Hx Anticoagulant Therapy: Yes (plavix, but states she does not take it anymore. It makes her sick ) Bipolar Disorder: Yes Anxiety: Yes Depression: Yes Heart Rhythm Problems: No Cardiac Catheterization: No Cardiovascular Problems: Yes High Cholesterol: Yes Congestive Heart Failure: No Diabetes: No Diminished Hearing: No Gastrointestinal Disorders: Yes GERD: Yes Respiratory: No Tetanus Vaccination: < 5 Years ?: Not : 3 Para: 1 Ectopic : Yes Past Surgical History Coronary Artery Bypass Graft: No Tonsillectomy: Yes Other Surgery: Yes (ESOPHAGEAL DILATION) Psychiatric History Psychiatric History Hx Psychiatric Treatment: HX of anxiety disorder. Has Ativan prescribed by PCP History of Inpatient Treatment: No Guns or firearms in home: No Social History female. Lives by herself. 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 Hx Alcohol Use: Yes (DAILY) Hx Tobacco Use: Yes (1/2 PACK A DAY ) Hx Substance Use: Yes (Drinks daily) Substance Use Type: Alcohol Hx of Substance Use Treatment: Yes ([facility]. Has completed program at [place] [id number]. ) Family Psychiatric History Negative Allergies-Medications (Allergen,Severity, Reaction): Coded Allergies: No Known Allergies (Unverified , 08/18/17) Reported Meds & Prescriptions Reported Meds & Active Scripts Active No Active Prescriptions or Reported Medications Review of Systems Except as stated in HPI: all other systems reviewed are Neg Exam Alert: Yes [place]: Person (ox4) Mood: Anxious Affect: Tearful Speech: Clear, Logical Eye Contact: Normal Memory Intact: Comment (No impairment) Hallucinations: Other (Negative) Delusions: No Suicidal: Ideation (Deneis any) Homicidal: Ideation (Deneis any) Insight/Judgement Fair. Not impaired. MDM Medical Decision Making Medical Record Reviewed: Yes Assessment/Plan The patient is a 57-year-old female with history of alcohol dependence who presents to emergency department via police under a Yuan act. According to the police affidavit the patient verbalized her desire to and that she was drinking excessively in order to . Upon her arrival her BAL was 201. The patient was monitored in secure environment until she was clinically sober. She did not present any suicidality and no behavioral concerns. The patient is clinically sober now and she denies any suicidal or homicidal ideation, intent or plan. She is future oriented, has good support in recovery community. She does not have an acute and unstable mental illness as defined under the Yuan act./ She is wanting help with her alcohol dependence. Lift Ba. Psychiatrically clear for discharge from ED. Orders Orders Complete Blood Count With Diff (08/28/17 11:14) Comprehensive Metabolic Panel (08/28/17 11:14) Psych Screen (08/28/17 11:14) Drug Screen, Random Urine (08/28/17 11:14) Alcohol (Ethanol) (08/28/17 11:14) Diet Regular Basic (08/28/17 Dinner) Alcohol Withdrawal Asmt-Ciwa ONCE (08/28/17 17:03) Ondansetron Odt (Zofran Odt) (08/28/17 17:15) Flumazenil Inj (Romazicon Inj) (08/28/17 17:15) Lorazepam (Ativan) (08/28/17 17:15) Lorazepam Inj (Ativan Inj) (08/28/17 17:15) Lorazepam (Ativan) (08/28/17 17:15) Lorazepam Inj (Ativan Inj) (08/28/17 17:15) Lorazepam Inj (Ativan Inj) (08/28/17 17:15) Lorazepam Inj (Ativan Inj) (08/28/17 17:15) Lorazepam Inj (Ativan Inj) (08/28/17 17:45) Diet Regular Basic (08/29/17 Breakfast) Results Vital Signs Date Time Temp Pulse Resp B/P (MAP) Pulse Ox O2 Delivery O2 Flow Rate FiO2 08/29/17 05:48 96.9 93 18 136/73 (94) 96 Room Air 08/29/17 02:19 97.9 89 18 128/73 (91) 95 Room Air 08/28/17 22:00 97.3 80 18 136/68 (90) 96 Room Air 08/28/17 18:24 83 18 140/86 (104) 100 Room Air 08/28/17 16:13 80 132/78 (96) 08/28/17 14:34 90 18 140/71 (94) 95 Room Air 08/28/17 11:10 98.0 97 16 129/79 (96) 99 Laboratory Tests Test 08/28/17 11:15 White Blood Count 5.9 Red Blood Count 4.29 Hemoglobin 15.1 Hematocrit 45.0 Mean Corpuscular Volume 104.8 Mean Corpuscular Hemoglobin 35.2 Mean Corpuscular Hemoglobin Concent 33.6 Red Cell Distribution Width 16.9 Platelet Count 344 Mean Platelet Volume 7.1 Neutrophils (%) (Auto) 69.2 Lymphocytes (%) (Auto) 17.1 Monocytes (%) (Auto) 12.3 Eosinophils (%) (Auto) 1.3 Basophils (%) (Auto) 0.1 Neutrophils # (Auto) 4.1 Lymphocytes # (Auto) 1.0 Monocytes # (Auto) 0.7 Eosinophils # (Auto) 0.1 Basophils # (Auto) 0.0 CBC Comment DIFF FINAL Differential Comment Blood Urea Nitrogen 6 Creatinine 0.66 Random Glucose 74 Total Protein 7.2 Albumin 3.5 Calcium Level 8.6 Alkaline Phosphatase 83 Aspartate Amino Transf (AST/SGOT) 150 Alanine Aminotransferase (ALT/SGPT) 132 Total Bilirubin 0.7 Sodium Level 141 Potassium Level 3.7 Chloride Level 106 Carbon Dioxide Level 22.1 Anion Gap 13 Estimat Glomerular Filtration Rate 93 Urine Opiates Screen NEG Urine Barbiturates Screen NEG Urine Amphetamines Screen NEG Urine Benzodiazepines Screen NEG Urine Cocaine Screen NEG Urine Cannabinoids Screen NEG Ethyl Alcohol Level 201 Diagnosis Primary Impression: Alcohol dependence with acute alcoholic intoxication without complication Psychiatrically Cleared: Yes Med/ Other Pt Specific Info: No Meds Exist/No RX given Prescriptions No Active Prescriptions or Reported Meds Disposition: 01 DISCHARGE HOME Condition: Stable ValverdeMarybeth bobs Sade Sascha JEREZ Aug 29, 2017 09:45
[2017-08-29 09:53] VITALS: BP 136/73; TEMP 96.9
--- NOTE | 2017-08-29 11:57 | PD ---
Physical Exam Date Seen by Provider: Aug 29, 2017 Time Seen by Provider: 11:54 Narrative 57-year-old female that presents to the ED for evaluation of Yuan act. Patient was seen by the previous provider as well as psychiatrist. Please refer to their notes. I was asked to disposition the patient. Per psychiatry GUNNER'S MATE M note patient was lifted off for Yuan act. She has a history of substance abuse and has been here frequently for same. Patient voices no medical complaints. Data Data Last Documented VS Vital Signs Date Time Temp Pulse Resp B/P (MAP) Pulse Ox O2 Delivery O2 Flow Rate FiO2 08/29/17 09:53 96.9 93 18 136/73 (94) 08/29/17 05:48 96 Room Air Orders Orders Complete Blood Count With Diff (08/28/17 11:14) Comprehensive Metabolic Panel (08/28/17 11:14) Psych Screen (08/28/17 11:14) Drug Screen, Random Urine (08/28/17 11:14) Alcohol (Ethanol) (08/28/17 11:14) Diet Regular Basic (08/28/17 Dinner) Alcohol Withdrawal Asmt-Ciwa ONCE (08/28/17 17:03) Ondansetron Odt (Zofran Odt) (08/28/17 17:15) Flumazenil Inj (Romazicon Inj) (08/28/17 17:15) Lorazepam (Ativan) (08/28/17 17:15) Lorazepam Inj (Ativan Inj) (08/28/17 17:15) Lorazepam (Ativan) (08/28/17 17:15) Lorazepam Inj (Ativan Inj) (08/28/17 17:15) Lorazepam Inj (Ativan Inj) (08/28/17 17:15) Lorazepam Inj (Ativan Inj) (08/28/17 17:15) Lorazepam Inj (Ativan Inj) (08/28/17 17:45) Diet Regular Basic (08/29/17 Breakfast) Diet Regular Basic (08/29/17 Lunch) Labs Laboratory Tests Test 08/28/17 11:15 White Blood Count 5.9 TH/MM3 Red Blood Count 4.29 MIL/MM3 Hemoglobin 15.1 GM/DL Hematocrit 45.0 % Mean Corpuscular Volume 104.8 FL Mean Corpuscular Hemoglobin 35.2 PG Mean Corpuscular Hemoglobin Concent 33.6 % Red Cell Distribution Width 16.9 % Platelet Count 344 TH/MM3 Mean Platelet Volume 7.1 FL Neutrophils (%) (Auto) 69.2 % Lymphocytes (%) (Auto) 17.1 % Monocytes (%) (Auto) 12.3 % Eosinophils (%) (Auto) 1.3 % Basophils (%) (Auto) 0.1 % Neutrophils # (Auto) 4.1 TH/MM3 Lymphocytes # (Auto) 1.0 TH/MM3 Monocytes # (Auto) 0.7 TH/MM3 Eosinophils # (Auto) 0.1 TH/MM3 Basophils # (Auto) 0.0 TH/MM3 CBC Comment DIFF FINAL Differential Comment Blood Urea Nitrogen 6 MG/DL Creatinine 0.66 MG/DL Random Glucose 74 MG/DL Total Protein 7.2 GM/DL Albumin 3.5 GM/DL Calcium Level 8.6 MG/DL Alkaline Phosphatase 83 U/L Aspartate Amino Transf (AST/SGOT) 150 U/L Alanine Aminotransferase (ALT/SGPT) 132 U/L Total Bilirubin 0.7 MG/DL Sodium Level 141 MEQ/L Potassium Level 3.7 MEQ/L Chloride Level 106 MEQ/L Carbon Dioxide Level 22.1 MEQ/L Anion Gap 13 MEQ/L Estimat Glomerular Filtration Rate 93 ML/MIN Urine Opiates Screen NEG Urine Barbiturates Screen NEG Urine Amphetamines Screen NEG Urine Benzodiazepines Screen NEG Urine Cocaine Screen NEG Urine Cannabinoids Screen NEG Ethyl Alcohol Level 201 MG/DL [facility] Medical Record Reviewed: Yes Supervised Visit with JUAN MIGUEL: No Differential Diagnosis Depression versus suicidal ideation versus anxiety versus adjustment disorder versus mood disorder versus bipolar disorder versus schizophrenia versus paranoid disorder versus psychosis versus substance abuse versus alcohol abuse versus alcohol induced psychosis versus homicidality addition versus cutting versus personality disorder Narrative Course 57-year-old female that presents to the ED for evaluation of Yuan act. Please refer to the previous providers note. I was asked to disposition the patient after patient had her Yuan acted lifted. At this time patient will be sent home with outpatient information to work she can get help for her substance abuse as well as her psychiatric illness. She was deemed cleared by psychiatry and her Yuan act was lifted. Patient okay to be discharged home. Follow with PCP. See ED worsening symptoms. Diagnosis Primary Impression: Alcohol dependence with acute alcoholic intoxication without complication Patient Instructions: General Instructions, At-Risk Alcohol Use (ED) Departure Forms: Tests/Procedures Additional Instruction: IS LEAVING FOR HOME IN [facility] ON MONDAY 09/03. [facility] [place]. Scripts No Active Prescriptions or Reported Meds Disposition: 01 DISCHARGE HOME Condition: Amari Cervantes Aug 29, 2017 11:57
== END 2017-08-29 12:14 | disposition home or self-care (01) ==
LOC: NEPD 10:52 → NEPJ 08-29 12:14
DX: F10.229 Alcohol dependence with intoxication, unspecified (principal); F41.9 Anxiety disorder, unspecified; F31.9 Bipolar disorder, unspecified; E78.00 Pure hypercholesterolemia, unspecified; K21.9 Gastro-esophageal reflux disease without esophagitis; F17.200 Nicotine dependence, unspecified, uncomplicated
CPT/HCPCS: 80053; 80307; 85025; 96372; 99284; J2060

== ENCOUNTER 2018-05-12 11:42 | Emergency (ER) | payer SELFPAY ==
[~2018-05-12] VITALS: Ht 170.2 cm; Wt 70.0 kg
[2018-05-12 11:42] VITALS: BP 113/60; PULSE 97; RESP 16; TEMP 98.9; O2SAT 95
[2018-05-12 12:30] LABS: AUTOMATED NEUTROPHIL # 8.4 TH/MM3 (1.8-7.7); BASOPHIL % 0.5 % (0.0-2.0); EOSINOPHIL # 0.1 TH/MM3 (0-0.4); EOSINOPHIL % 0.6 % (0.0-4.0); HEMATOCRIT 48.5 % (35.0-46.0); HEMOGLOBIN 16.7 GM/DL (11.6-15.3); LYMPH % 5.9 % (9.0-44.0); LYMPHOCYTE # 0.6 TH/MM3 (1.0-4.8); MEAN CELL VOLUME 101.3 FL (80.0-100.0); MEAN CORPUSCULAR HEMOGLOBIN 34.9 PG (27.0-34.0); MEAN CORPUSCULAR HGB CONC 34.4 % (32.0-36.0); MEAN PLATELET VOLUME 7.8 FL (7.0-11.0); MONO % 7.4 % (0.0-8.0); MONOCYTE # 0.7 TH/MM3 (0-0.9); NEUT % 85.6 % (16.0-70.0); PLATELET COUNT 334 TH/MM3 (150-450); RED BLOOD COUNT 4.79 MIL/MM3 (4.00-5.30); RED CELL DISTRIBUTION WIDTH 14.4 % (11.6-17.2); WHITE BLOOD COUNT 9.8 TH/MM3 (4.0-11.0)
[2018-05-12 12:42] LABS: BACTERIA, URINE MANY /hpf; BILIRUBIN, URINE NEG (NEG); BLOOD, URINE SMALL (NEG); GLUCOSE,URINE NEG (NEG); HYALINE CAST, URINE 2 /lpf (RARE); KETONE, URINE NEG (NEG); MUCUS URINE FEW /lpf (OCC); NITRITE,URINE POS (NEG); SQUAMOUS EPITHELIAL CELL URINE 10 /hpf (0-5); URINE COLOR YELLOW (YELLW/STRAW); URINE LEUKOCYTE ESTERASE LARGE (NEG)
[2018-05-12 12:52] LABS: ALBUMIN 3.2 GM/DL (3.4-5.0); AST (GOT) 14 U/L (15-37); BICARBONATE 25.4 MEQ/L (21.0-32.0); BLOOD UREA NITROGEN 5 MG/DL (7-18); CALCIUM 8.9 MG/DL (8.5-10.1); CHLORIDE 103 MEQ/L (98-107); CREATININE 0.63 MG/DL (0.50-1.00); GLOMERULAR FILTRATION RATE 97 ML/MIN (>89); GLUCOSE,RANDOM 80 MG/DL (74-106); SODIUM (NA) 138 MEQ/L (136-145)
[2018-05-12 12:56] LABS: ALKALINE PHOSPHATASE 99 U/L (45-117); ALT (GPT) 17 U/L (10-53); TOTAL BILIRUBIN ADULT 0.4 MG/DL (0.2-1.0); TOTAL PROTEIN 7.6 GM/DL (6.4-8.2)
--- NOTE | 2018-05-12 13:09 | PD ---
HPI Chief Complaint: Abdominal Pain Time Seen by Provider: 13:00 Travel History International Travel<30 days: No Contact w/Intl Traveler<30days: No Traveled to known affect area: No History of Present Illness HPI Patient comes emergency department complaining of abdominal pain that began yesterday. Patient reports she had been constipated for 6 days. Patient reports that one of her neighbors gave her some Epson salt to drink which has caused her have multiple bowel movements and abdominal cramping. Patient reports one episode of nonbloody nonbilious vomiting. Denies any fevers, chest pain, shortness of breath, fevers, loss change in bladder. Patient complaining of contraction-like pain in her suprapubic area that radiates to her back. Patient denies anything making this better or worse. PFSH Past Medical History Hx Anticoagulant Therapy: Yes (plavix, but states she does not take it anymore. It makes her sick ) Bipolar Disorder: Yes Anxiety: Yes Depression: Yes Heart Rhythm Problems: No Cardiac Catheterization: No Cardiovascular Problems: Yes High Cholesterol: Yes Congestive Heart Failure: No Diabetes: No Diminished Hearing: No Gastrointestinal Disorders: Yes GERD: Yes Respiratory: No : 3 Para: 1 Ectopic : Yes (X2) Past Surgical History Coronary Artery Bypass Graft: No Tonsillectomy: Yes Other Surgery: Yes (ESOPHAGEAL DILATION) Social History Alcohol Use: Yes (2/3 BEERS DAILY) Tobacco Use: Yes (1/2 PACK A DAY ) Substance Use: Yes (Drinks daily) Allergies-Medications (Allergen,Severity, Reaction): Coded Allergies: No Known Allergies (Unverified Adverse Reaction, Unknown, 05/12/18) Reported Meds & Prescriptions Reported Meds & Active Scripts Active Bentyl (Dicyclomine HCl) 10 Mg Cap 10 Mg PO TID PRN Bactrim DS (Sulfamethoxazole-Trimethoprim) 800-160 Mg Tab 1 Tab PO BID Review of Systems Except as stated in HPI: all other systems reviewed are Neg Physical Exam Narrative GENERAL: Well-developed, overly nourished, in no acute distress, and non-ill appearing. SKIN: Focused skin assessment warm and dry. HEAD: Atraumatic. Normocephalic. EYES: Pupils equal and round. EOMI. No scleral icterus. No injection or drainage. ENT: No nasal bleeding or discharge. Mucous membranes pink and moist. NECK: Trachea midline. Supple. No nuclear rigidity. CARDIOVASCULAR: Regular rate and rhythm. No murmur appreciated. RESPIRATORY: No accessory muscle use. No respiratory distress. Clear to auscultation. Breath sounds equal bilaterally. GASTROINTESTINAL: Abdomen soft, nondistended, and no guarding. Hepatic and splenic margins not palpable. Hyperactive bowel sounds x4. No pulsatile mass. Patient reports tenderness in suprapubic area. MUSCULOSKELETAL: No obvious deformities. No clubbing. No cyanosis. No edema. Full range of motion. NEUROLOGICAL: Awake and alert. No obvious cranial nerve deficits. Motor grossly within normal limits. Normal speech. PSYCHIATRIC: Appropriate mood and affect; insight and judgment normal. Data Data Last Documented VS Vital Signs Date Time Temp Pulse Resp B/P (MAP) Pulse Ox O2 Delivery O2 Flow Rate FiO2 05/12/18 11:42 98.9 97 16 113/60 (77) 95 Orders Orders Complete Blood Count With Diff (05/12/18 11:46) Comprehensive Metabolic Panel (05/12/18 11:46) Urinalysis - C+S If Indicated (05/12/18 11:46) Iv Access Insert/Monitor (05/12/18 11:46) Oxygen Administration (05/12/18 11:46) Oximetry (05/12/18 11:46) Lipase (05/12/18 11:46) Urine Culture (05/12/18 11:50) Dicyclomine (Bentyl) (05/12/18 13:15) Potassium Chloride (Kcl) (05/12/18 13:15) Ondansetron Odt (Zofran Odt) (05/12/18 13:15) Phenazopyridine (Pyridium) (05/12/18 13:15) Ed Discharge Order (05/12/18 13:51) Labs Laboratory Tests Test 05/12/18 11:50 White Blood Count 9.8 TH/MM3 Red Blood Count 4.79 MIL/MM3 Hemoglobin 16.7 GM/DL Hematocrit 48.5 % Mean Corpuscular Volume 101.3 FL Mean Corpuscular Hemoglobin 34.9 PG Mean Corpuscular Hemoglobin Concent 34.4 % Red Cell Distribution Width 14.4 % Platelet Count 334 TH/MM3 Mean Platelet Volume 7.8 FL Neutrophils (%) (Auto) 85.6 % Lymphocytes (%) (Auto) 5.9 % Monocytes (%) (Auto) 7.4 % Eosinophils (%) (Auto) 0.6 % Basophils (%) (Auto) 0.5 % Neutrophils # (Auto) 8.4 TH/MM3 Lymphocytes # (Auto) 0.6 TH/MM3 Monocytes # (Auto) 0.7 TH/MM3 Eosinophils # (Auto) 0.1 TH/MM3 Basophils # (Auto) 0.0 TH/MM3 CBC Comment AUTO DIFF Differential Comment AUTO DIFF CONFIRMED Platelet Estimate NORMAL Platelet Morphology Comment CLUMPED Urine Color YELLOW Urine Turbidity HAZY Urine pH 6.0 Urine Specific [place] 1.010 Urine Protein NEG mg/dL Urine Glucose (UA) NEG mg/dL Urine Ketones NEG mg/dL Urine Occult Blood SMALL Urine Nitrite POS Urine Bilirubin NEG Urine Urobilinogen LESS THAN 2.0 MG/DL Urine Leukocyte Esterase LARGE Urine RBC 3 /hpf Urine WBC 47 /hpf Urine Squamous Epithelial Cells 10 /hpf Urine Bacteria MANY /hpf Urine Hyaline Casts 2 /lpf Urine Mucus FEW /lpf Microscopic Urinalysis Comment CULTURE INDICATED Blood Urea Nitrogen 5 MG/DL Creatinine 0.63 MG/DL Random Glucose 80 MG/DL Total Protein 7.6 GM/DL Albumin 3.2 GM/DL Calcium Level 8.9 MG/DL Alkaline Phosphatase 99 U/L Aspartate Amino Transf (AST/SGOT) 14 U/L Alanine Aminotransferase (ALT/SGPT) 17 U/L Total Bilirubin 0.4 MG/DL Sodium Level 138 MEQ/L Potassium Level 3.3 MEQ/L Chloride Level 103 MEQ/L Carbon Dioxide Level 25.4 MEQ/L Anion Gap 10 MEQ/L Estimat Glomerular Filtration Rate 97 ML/MIN Lipase 155 U/L [facility] Medical Decision Making Medical Screen Exam Complete: Yes Emergency Medical Condition: Yes Differential Diagnosis UTI, metabolic disturbance, diarrhea, constipation Narrative Course The patient is tolerating fluids and is well hydrated. I suspect symptoms are secondary to recent self ingestion of Epsom salt to treat constipation by history and exam. The abdominal exam minimal tenderness in suprapubic region to me without any masses, distension, or significant tenderness. There is no reported blood in the stool. No clinical evidence by history, exam, or evaluation to suspect appendicitis, obstruction or other acute surgical abdomen at this time. The patient was tolerating fluids at time of discharge. It was discussed with the patient, diagnosis, and plan of care and to follow up with the patients primary physician this week. The patient was also informed that they may return here for follow up if they are unable to follow up with their doctor. Abdominal warnings were discussed. The patient was instructed to return sooner if the patient worsens in anyway, especially if the abdominal pain changes, the patient experiences more pain, is not tolerating fluids, increased diarrhea, bloody stools, the patient develops persistent vomiting, has decreased activity, or dizziness with standing or as needed. The patient agreed with plan. Patient in no obvious distress upon re-evaluation. All pertinent laboratory result(s) discussed with patient. Discussed patient with Dr. Mackenzie prior discharge, who is in agreement with plan of care and disposition. Patient was asked if they wanted to speak to my attending, which the patient did not wish to do at this time. Any questions/concerns in reference to patient diagnosis/ condition discussed and clarified prior to patient's discharge. Reinforced sheer importance of close follow up with patient's primary physician or primary care clinic. Instructed patient to return to ED immediately, if symptoms return/ worsen. Patient showed understanding of above instructions. Further instructions and recommendations were detailed in discharge paperwork. Patient ambulated without difficulty out of ED at discharge. Diagnosis Primary Impression: Diarrhea in adult patient Additional Impression: UTI (urinary tract infection) Qualified Codes: N39.0 - Urinary tract infection, site not specified Referrals: [facility] Patient Instructions: Acute Diarrhea (ED), General Instructions, Urinary Tract Infection in Women (DC) Additional Instructions: Follow-up with your primary care physician this week for reevaluation. Take all medication as prescribed. Drink plenty of non-caffeinated and nonalcoholic fluids. Return to the emergency department if symptoms get worse. Med/Other Pt SpecificInfo: Prescription(s) given Scripts Dicyclomine (Bentyl) 10 Mg Cap 10 MG PO TID Y for Bowel Management, #12 CAP 0 Refills Prov: Andrea Mackenzie MD 05/12/18 Sulfamethoxazole-Trimethoprim (Bactrim DS) 800-160 Mg Tab 1 TAB PO BID for Infection, #20 TAB 0 Refills Prov: Andrea Mackenzie MD 05/12/18 Disposition: 01 DISCHARGE HOME Condition: Stable Deejay Gu May 12, 2018 13:09
[2018-05-12] MEDS ORDERED: PHENAZOPYRIDINE HCL 200 MG TAB PO ONE (13:15)
[2018-05-12] MEDS ORDERED: POTASSIUM CHLORIDE 20 MEQ CONTROLLED RELEASE TAB PO ONE (13:15)
[2018-05-12] MEDS ORDERED: ONDANSETRON ODT 4 MG TAB PO ONE (13:15)
[2018-05-12] MEDS ORDERED: DICYCLOMINE HCL 10 MG CAP PO ONE (13:15)
[2018-05-12] MEDS ORDERED: DICY10 PO ×2 (13:43→13:44)
[2018-05-12] MEDS ORDERED: BACT800T5 PO (13:43)
== END 2018-05-12 14:48 | disposition home or self-care (01) ==
LOC: NEPD 11:42
DX: R19.7 Diarrhea, unspecified (principal); N39.0 Urinary tract infection, site not specified; F17.200 Nicotine dependence, unspecified, uncomplicated
CPT/HCPCS: 80053; 81001; 83690; 85025; 87077; 87086; 87186; 99283

== ENCOUNTER 2018-05-27 07:04 | Emergency (ER) | payer SELFPAY ==
[~2018-05-27] VITALS: Ht 162.6 cm; Wt 60.0 kg
[~2018-05-27 07:04] MED LIST changes: -ASPI325T PO; +BACT800T5 PO; +DICY10 PO; -IBUP200C PO; -LORA1TAB12 PO; -LOVA10TA PO; -PLAV75TA29 PO; -SIMV5TAB3 PO; -[UNRECOGNIZED DRUG - CODE] PO
[2018-05-27 07:09] VITALS: BP 102/71; PULSE 101; RESP 16; TEMP 98; O2SAT 97
--- NOTE | 2018-05-27 07:31 | PD ---
HPI Chief Complaint: Injury Time Seen by Provider: 07:17 Travel History International Travel<30 days: No Contact w/Intl Traveler<30days: No Traveled to known affect area: No History of Present Illness HPI 58-year-old female with PMH of chronic alcoholism presents the ED for evaluation of 1 week history of throbbing left calf pain. Onset after "I used my knee to push a couch." Pain is 0 at rest, exacerbated to 10/10 by walking. She endorses numbness. Denies tingling, weakness, limitations or range of motion of the extremity. She endorses history of balloon angioplasty in the same leg. Patient states she has been treating at home with aspirin and "had a few drinks this morning" to kill the pain. PFSH Past Medical History Hx Anticoagulant Therapy: Yes (plavix, but states she does not take it anymore. It makes her sick ) Bipolar Disorder: Yes Anxiety: Yes Depression: Yes Heart Rhythm Problems: No Cardiac Catheterization: No Cardiovascular Problems: Yes High Cholesterol: Yes Congestive Heart Failure: No Diabetes: No Diminished Hearing: No Gastrointestinal Disorders: Yes GERD: Yes Respiratory: No ?: Not : 3 Para: 1 Ectopic : Yes (X2) Past Surgical History Coronary Artery Bypass Graft: No Tonsillectomy: Yes Other Surgery: Yes (ESOPHAGEAL DILATION) Social History Alcohol Use: Yes (2/3 BEERS DAILY) Tobacco Use: Yes (1/2 PACK A DAY ) Substance Use: Yes (Drinks daily) Allergies-Medications (Allergen,Severity, Reaction): Coded Allergies: No Known Allergies (Unverified Adverse Reaction, Unknown, 05/12/18) Reported Meds & Prescriptions Reported Meds & Active Scripts Active Bentyl (Dicyclomine HCl) 10 Mg Cap 10 Mg PO TID PRN Bactrim DS (Sulfamethoxazole-Trimethoprim) 800-160 Mg Tab 1 Tab PO BID Review of Systems Except as stated in HPI: all other systems reviewed are Neg Physical Exam Narrative GENERAL: Well-nourished, well-developed anxious, intoxicated white female no acute distress. SKIN: Focused skin assessment warm/dry. HEAD: Normocephalic. EYES: No scleral icterus. No injection or drainage. NECK: Supple, trachea midline. No JVD or lymphadenopathy. CARDIOVASCULAR: Regular rate and rhythm without murmurs, gallops, or rubs. RESPIRATORY: Breath sounds equal bilaterally. No accessory muscle use. GASTROINTESTINAL: Abdomen soft, non-tender, nondistended. MUSCULOSKELETAL: No cyanosis, or edema. No ecchymosis. Dopplerable DP and PT pulses. Foot is warm and well perfused. Homans sign negative. No popliteal tenderness. No tenderness to palpation of the joints. Patient is able to extend the leg to 0 and flex beyond 90. Negative anterior posterior drawer testing. No negative varus/valgus stress testing. Neurovascularly intact distally. BACK: Nontender without obvious deformity. No CVA tenderness. Data Data Last Documented VS Vital Signs Date Time Temp Pulse Resp B/P (MAP) Pulse Ox O2 Delivery O2 Flow Rate FiO2 05/27/18 07:29 Room Air 05/27/18 07:09 98.0 101 16 102/71 (81) 97 Orders Orders Us Leg Venous Doppler (05/27/18 07:28) Ed Discharge Order (05/27/18 10:34) [facility] Medical Decision Making Medical Screen Exam Complete: Yes Emergency Medical Condition: Yes Differential Diagnosis Musculoskeletal pain versus DVT versus PVD versus claudication versus malingering versus other Narrative Course 58-year-old female with PMH of chronic alcoholism, PVD status post balloon angioplasty presents the ED for evaluation of 1 week history of throbbing left calf pain. Onset after "I used my knee to push a couch." Pain is 0 at rest, exacerbated to 10/10 by walking. Vitals reviewed. On exam patient is very anxious. There are dopplerable DP and PT pulses. The leg is warm and well perfused. I can elicit no pain in the leg. Exam of the knee is reassuring. Ultrasound reveals no evidence of DVT. I reviewed the patient's previous CTA with runoff. I discussed the case with Dr. Alba. I suspect that she is having claudication symptoms, however Johnathan Alba and I do not feel this warrants emergent intervention in the OR. She is unable to remember the name of the doctor who performed her previous intervention. Will refer to the [facility] clinic for further evaluation. I discussed this plan with the patient who is agreeable. The patient is stable and discharged home. Diagnosis Primary Impression: PVD (peripheral vascular disease) with claudication Additional Impressions: Musculoskeletal pain of left lower extremity Left leg pain Referrals: Ishan Vargas MD [facility] Primary Care Physician Vascular Surgeon Additional Instructions: Rest, hydrate. Warm compresses applied a few times a day may help to reduce pain. Follow up with your vascular surgeon for further evaluation. Return to the ED for worsening symptoms or any urgent or emergent medical condition. Disposition: 01 DISCHARGE HOME Condition: Stable Lyssa Gaspar May 27, 2018 07:31
--- NOTE | 2018-05-27 09:24 | RADRPT ---
EXAM DATE: 05/27/2018 9:20 AM EDT AGE/SEX: 58 years / Female INDICATIONS: Left leg pain. CLINICAL DATA: This is the patient's initial encounter. Patient reports that signs and symptoms have been present for 1 week and indicates a pain score of 3/10. MEDICAL/SURGICAL HISTORY: Hypercholesterolemia. Gastroesophageal reflux disease. . Claudication. Anticoagulant therapy. Ectopic . Bipolar disorder. Depression. Anxiety. ETOH a buse. Tonsillectomy. Esophageal dilation. COMPARISON: [facility] [place], US LEG LEFT VENOUS DOPPLER, 11/28/2016. . TECHNIQUE: Venous ultrasound of both lower extremities was performed from the inguinal ligament to t he proximal calf. Real-time, color Doppler and spectral tracing, compression and augmentation techni ques were used. FINDINGS: Normal compression of the deep venous system from the inguinal region to the proximal calf . No echogenic clot is seen. Normal response of the venous system to augmentation and respiration. CONCLUSION: 1. No sonographic evidence for left lower extremity DVT. Electronically signed by: Deshaun Todd MD 05/27/2018 9:23 AM EDT
--- NOTE | 2018-05-27 10:03 | PD ---
Data Data Last Documented VS Vital Signs Date Time Temp Pulse Resp B/P (MAP) Pulse Ox O2 Delivery O2 Flow Rate FiO2 05/27/18 07:29 Room Air 05/27/18 07:09 98.0 101 16 102/71 (81) 97 Orders Orders Us Leg Venous Doppler (05/27/18 07:28) Ed Discharge Order (05/27/18 10:34) MDM Medical Record Reviewed: Yes Supervised Visit with JUAN MIGUEL: Yes Narrative Course I, Dr. Alba, have reviewed the advance practice practitioner's documentation and am in agreement, met with the patient face to face, made the diagnosis, and the medical decision making was done by me. *My assessment and Findings: There is no venous or arterial occlusion. Perfusion is good in the left lower extremity. There is a dopplerable posterior tibialis and dopplerable dorsalis pedis. Patient will benefit from follow-up with primary care and vascular surgery. Work note provided at patient's request. Last Impressions Lower Extremity Ultrasound 05/27/18 07 Signed Impressions: CONCLUSION: 1. No sonographic evidence for left lower extremity DVT. Diagnosis Primary Impression: Musculoskeletal pain of left lower extremity Referrals: [facility] Primary Care Physician Med/Other Pt SpecificInfo: No Change to Meds Disposition: 01 DISCHARGE HOME Condition: Stable Torrey Alba MD May 27, 2018 10:03
== END 2018-05-27 10:47 | disposition home or self-care (01) ==
LOC: NEPD 07:04
DX: I73.9 Peripheral vascular disease, unspecified (principal); R20.0 Anesthesia of skin; F41.8 Other specified anxiety disorders; F17.210 Nicotine dependence, cigarettes, uncomplicated
CPT/HCPCS: 93971; 99284